=== PATIENT | male | born 1970 | race African-American/Black ===

== ENCOUNTER 2018-11-10 11:17 | Inpatient (IN) | payer OTHER ==
[2018-11-10 12:37] VITALS: BMI 31.8
--- NOTE | 2018-11-10 13:47 | HP ---
CIWA Score Nausea/Vomitin Muscle Tremors: 2 Anxiety: 2 Agitation: 2 Paroxysmal Sweats: 1-Minimal Palms Moist Orientation: 0-Oriented Tacttile Disturbances: 1-Very Mild Itch/Numbness Auditory Disturbances: 1-Very Mild Visual Disturbances: 0-None Headache: 2-Mild CIWA-Ar Total Score: 13 - Admission Criteria OASAS Guidelines: Admission for Medically Managed Detox: Requires at least one of the followin. CIWA greater than 12 2. Seizures within the past 24 hours 3. Delirium tremens within the past 24 hours 4. Hallucinations within the past 24 hours 5. Acute intervention needed for co occurring medical disorder 6. Acute intervention needed for co occurring psychiatric disorder 7. Severe withdrawal that cannot be handled at a lower level of care (continued vomiting, continued diarrhea, abnormal vital signs) requiring intravenous medication and/or fluids 8. Admission ROS S - HPI Chief Complaint: i need help to stop drinking alcohol Allergies/Adverse Reactions: Allergies Allergy/AdvReac Type Severity Reaction Status Date / Time No Known Allergies Allergy Verified 11/10/18 12:22 History of Present Illness: this 48 years old male with alcohol dependence,seeking detox,withdrawal symptom, also cocaine user, multiple admissions in detox,last [facility] in 05/09 completed history of hypertension,atrial fibrillation nicotine dependence 7 cigarette,would like to have nicotine gum hypercholesterolemia longest sobriety 18 months plan for out patient program,relocate patient is non compliance with medication for atrial fibrillation Exam Limitations: No Limitations - Ebola screening Have you traveled outside of the country in the last 21 days: No (N) Have you had contact with anyone from an Ebola affected area: No Do you have a fever: No - Review of Systems Constitutional: Loss of Appetite, Malaise, Night Sweats, Changes in sleep EENT: reports: Nose Congestion Respiratory: reports: No Symptoms reported Cardiac: reports: No Symptoms Reported, Other (hypertension,hypercholesterolemia ,atrial fibrillation non compliance with medication) GI: reports: Abd. Pain w/ defecation, Nausea : reports: No Symptoms Reported Musculoskeletal: reports: Back Pain, Muscle Pain Integumentary: reports: Dryness Neuro: reports: Headache, Tremors Endocrine: reports: No Symptoms Reported Hematology: reports: No Symptoms Reported Psychiatric: reports: No Sypmtoms Reported, Judgement Intact, Mood/Affect Appropiate, Orientated x3, other Other Systems: Reviewed and Negative Patient History - Patient Medical History Hx Anemia: No Hx Asthma: No Hx Chronic Obstructive Pulmonary Disease (COPD): No Hx Cancer: No Hx Cardiac Disorders: Yes (A - Fib ) Hx Congestive Heart Failure: No Hx Hypertension: Yes Hx Hypercholesterolemia: Yes Hx Pacemaker: No HX Cerebrovascular Accident: No Hx Seizures: No Hx Dementia: No Hx Diabetes: Yes (Pre-Diabetic Control with diet ) Hx Gastrointestinal Disorders: No Hx Liver Disease: No Hx Genitourinary Disorders: No Hx Sexually Transmitted Disorders: Yes (Gonorrhea ) Hx Renal Disease (ESRD): No Hx Thyroid Disease: No Hx Human Immunodeficiency Virus (HIV): No (last 07/10 negative) Hx Hepatitis C: No Hx Depression: Yes Hx Suicide Attempt: No Hx Bipolar Disorder: Yes (not on meds for 10 years,do not want to see psychiatrist) Hx Schizophrenia: No Other Medical History: no suicidal,no homicidal - Patient Surgical History Past Surgical History: No Hx Neurologic Surgery: No Hx Cataract Extraction: No Hx Cardiac Surgery: No Hx Lung Surgery: No Hx Breast Surgery: No Hx Breast Biopsy: No Hx Abdominal Surgery: No Hx Appendectomy: No Hx Cholecystectomy: No Hx Genitourinary Surgery: No Hx Section: No Hx Orthopedic Surgery: No Hx Hysterectomy: No Anesthesia Reaction: No - PPD History Previous Implant?: Yes Documented Results: Negative w/o proof Implanted On Prior R Admission?: Yes Date: 09/30/17 PPD to be Administered?: Yes - Smoking Cessation Smoking history: Current every day smoker Have you smoked in the past 12 months: Yes Aproximately how many cigarettes per day: 7 Hx Chewing Tobacco Use: No Initiated information on smoking cessation: Yes 'Breaking Loose' booklet given: 11/10/18 - Substance & Tx. History Hx Alcohol Use: Yes Hx Substance Use: Yes Substance Use Type: Alcohol, Cocaine Hx Substance Use Treatment: Yes ([facility] in 05/09) - Substances abused Alcohol Substance route: Oral Frequency: Daily Amount used: 6 CANS OF BEER 16 OZS, 3 PINTS OF VINCENZO Age of first use: 21 Date of last use: 11/10/18 Cocaine Substance route: Inhalation Frequency: 3-6 times per week Amount used: $400 Age of first use: 25 Date of last use: 11/09/18 Family Disease History - Family Disease History Family Disease History: Diabetes: Mother (alives, HTN), Heart Disease: Mother, Other: Father (, dementia ), Mother Admission Physical Exam [facility] - Vital Signs Vital Signs: Vital Signs - 24 hr 11/10/18 11/10/18 12:21 13:07 Temperature 97.5 F L 97.5 F L Pulse Rate 85 85 Respiratory 20 20 Rate Blood Pressure 143/83 143/83 - Physical General Appearance: Yes: Moderate Distress, Tremorous, Irritable, Sweating, Anxious HEENTM: Yes: Normal ENT Inspection, MARA, Pharynx Normal Respiratory: Yes: Lungs Clear, Normal Breath Sounds, No Respiratory Distress Neck: Yes: Within Normal Limits, Supple, Trachea in good position Breast: Yes: Within Normal Limits Cardiology: Yes: Within Normal Limits, Regular Rhythm, Regular Rate, S1, S2 Abdominal: Yes: Within Normal Limits, Normal Bowel Sounds, Non Tender, Flat, Soft Genitourinary: Yes: Within Normal Limits Back: Yes: Muscle Spasm Musculoskeletal: Yes: full range of Motion, Back pain, Muscle Pain Extremities: Yes: Tremors 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 NML intact, Alert, Motor Strength 5/5 Integumentary: Yes: Dry Lymphatic: Yes: Within Normal Limits - Diagnostic (1) Alcohol dependence with withdrawal Current Visit: No Status: Acute Qualifiers: Complication of substance-induced condition: uncomplicated Qualified Code(s ): F10.230 - Alcohol dependence with withdrawal, uncomplicated (2) Cocaine dependence Current Visit: No Status: Acute Qualifiers: Substance use status: uncomplicated Qualified Code(s): F14.20 - Cocaine dependence, uncomplicated (3) Hyperlipidemia Current Visit: No Status: Acute Qualifiers: Hyperlipidemia type: unspecified Qualified Code(s): E78.5 - Hyperlipidemia , unspecified (4) Hypertension Current Visit: No Status: Chronic Qualifiers: Hypertension type: essential hypertension Qualified Code(s): I10 - Essential (primary) hypertension (5) Prediabetes Current Visit: No Status: Chronic (6) History of atrial fibrillation Current Visit: No Status: Suspected (7) Nicotine dependence Current Visit: No Status: Acute Cleared for Admission [facility] - Detox or Rehab [facility] Level of Care: Medically Managed Detox Regimen/Protocol: Librium Breathalyzer - Breathalyzer Breathalyzer: 0 Urine Drug Screen - Test Device Lot number: [id number] Expiration date: 07/22/20 - Control Is test valid?: Yes - Results Drug screen NEGATIVE: No Urine drug screen results: [facility]-Cocaine Inpatient Rehab Admission - Rehab Decision to Admit Inpatient rehab admission?: No
[2018-11-10] MEDS ORDERED: MAGNESIUM CITRATE 300 ML BOTTLE PO PRN (13:57)
[2018-11-10] MEDS ORDERED: hydrOXYzine PAMOATE 25 MG CAPSULE (FP) PO PRN (13:57)
[2018-11-10] MEDS ORDERED: IBUPROFEN 400 MG TABLET (FP) PO PRN (13:57)
[2018-11-10] MEDS ORDERED: METHOCARBAMOL 500 MG TABLET PO PRN (13:57)
[2018-11-10] MEDS ORDERED: MAGNESIUM HYDROX 2400MG/30ML ORAL SUSPENSION 30 ML CUP PO PRN (13:57)
[2018-11-10] MEDS ORDERED: BISMUTH SUBSALICYLATE 262 MG/15 ML BTL PO PRN (13:57)
[2018-11-10] MEDS ORDERED: MAG HYDROX/AL HYDROX/SIMETH 30 ML UNIT-DOSE CUP PO PRN (13:57)
[2018-11-10] MEDS ORDERED: NICOTINE POLACRILEX 2 MG GUM BUC PRN (13:57)
[2018-11-10] MEDS ORDERED: ACETAMINOPHEN 325 MG TABLET (FP) PO PRN ×2 (13:57)
[2018-11-10] MEDS ORDERED: MENTHOL/PHENOL 1 EACH UD MM PRN (13:57)
[2018-11-10] MEDS ORDERED: chlordiazePOXIDE HCL 25 MG CAPSULE PO PRN (13:57)
--- NOTE | 2018-11-10 14:57 | PN ---
[facility] Progress Note Note: ekg atrial fibrillation 113/min,history of chronic atrial fibrillation,non compliance with medication
[2018-11-10] MEDS ORDERED: METOPROLOL TARTRATE 50 MG TABLET (FP) PO ONE (15:15)
[2018-11-10] MEDS ORDERED: ASPIRIN 81 MG CHEWABLE TABLETS PO ONE (15:15)
--- NOTE | 2018-11-10 15:21 | EKG ---
Test Reason : Blood Pressure : / mmHG Vent. Rate : 113 BPM Atrial Rate : 138 BPM P-R Int : 164 ms QRS Dur : 090 ms QT Int : 344 ms P-R-T Axes : 072 -34 055 degrees QTc Int : 471 ms SINUS TACHYCARDIA WITH BLOCKED PREMATURE ATRIAL COMPLEXES WITH FUSION COMPLEXES LEFT AXIS DEVIATION NONSPECIFIC T WAVE ABNORMALITY ABNORMAL ECG WHEN COMPARED WITH ECG OF 29-SEP-2017 09:32, FUSION COMPLEXES ARE NOW PRESENT QRS AXIS SHIFTED LEFT MINIMAL CRITERIA FOR INFERIOR INFARCT ARE NO LONGER PRESENT Confirmed by OSCAR QUIROS, EARLINE ([id number]) on 11/10/2018 3:20:45 PM Referred By: Confirmed By:EARLINE MOORE MD
--- NOTE | 2018-11-10 17:07 | CONSULT ---
[facility] Psychiatric Consult - Data Date of interview: 11/10/18 Admission source: [facility] Identifying data: Patient is a 48 year old male, father of three, domiciled, and is currently unemployed. This is one of multiple admissions for patient. Patient admitted to for cocaine dependence. Substance Abuse History: Smoking Cessation. Smoking history: Current every day smoker. Have you smoked in the past 12 months: Yes. Aproximately how many cigarettes per day: 7. Hx Chewing Tobacco Use: No. Initiated information on smoking cessation: Yes. 'Breaking Loose' booklet given: 11/10/18. - Substance & Tx. History. Hx Alcohol Use: Yes. Hx Substance Use: Yes. Substance Use Type : Alcohol, Cocaine. Hx Substance Use Treatment: Yes ([facility] Molina in 05/09). - Substances abused. Alcohol. Substance route: Oral. Frequency: Daily. Amount used: 6 CANS OF BEER 16 OZS, 3 PINTS OF VINCENZO. Age of first use: 21. Date of last use: 11/10/18. Cocaine. Substance route: Inhalation. Frequency: 3-6 times per week. Amount used: $400. Age of first use: 25. Date of last use: 11/09/18 Medical History: A-fib, Pre-diabetic, h/o Gonorrhea Psychiatric History: Patient reports h/o two psychiatric hospitalizations at [facility] ( over ten years ago) to address his depression. Patient with a history of noncompliance to psychiatric treatment. Reports last seeing an outpatient psychiatrist four months ago at [facility] but did not accept psychotropic medications. States he has taken celexa and zyprexa in the past. States he has not taken medications in ten years. At present he reports feeling depressed but is opposed to accepting medications. States he wants to continue detox and than attend rehab. Patient denies h/o suicide attempt. Physical/Sexual Abuse/Trauma History: denies. Mental Status Exam - Mental Status Exam Alert and Oriented to: Time, Place, Person Cognitive Function: Good Patient Appearance: Well Groomed Mood: Sad Affect: Mood Congruent Patient Behavior: Cooperative Speech Pattern: Appropriate Voice Loudness: Normal Thought Process: Goal Oriented Thought Disorder: Not Present Hallucinations: Denies Suicidal Ideation: Denies Homicidal Ideation: Denies Insight/Judgement: Poor Sleep: Fair Appetite: Fair Muscle strength/Tone: Normal Gait/Station: Normal Psychiatric Findings - Problem List ([place] 1, 2,3) (1) Substance induced mood disorder Current Visit: Yes Status: Acute (2) Alcohol dependence with withdrawal Current Visit: No Status: Acute Qualifiers: Complication of substance-induced condition: uncomplicated Qualified Code(s ): F10.230 - Alcohol dependence with withdrawal, uncomplicated (3) Cocaine dependence Current Visit: No Status: Acute Qualifiers: Substance use status: uncomplicated Qualified Code(s): F14.20 - Cocaine dependence, uncomplicated - Initial Treatment Plan Initial Treatment Plan: Psychoeducation provided. Detoxification in progress. Observation.
[2018-11-10 17:19] LABS: HEMATOCRIT 47.2 % (35.4-49); HEMOGLOBIN 15.3 GM/dL (11.7-16.9); MCH 29.2 pg (25.7-33.7); MCHC 32.5 g/dl (32.0-35.9); MEAN CELL VOLUME 89.9 fl (80-96); MEAN PLT VOLUME 9.4 fl (7.5-11.1); PLATELET COUNT 183 K/MM3 (134-434); RBC 5.25 M/mm3 (4.00-5.60); RDW 14.5 % (11.9-15.9); WHITE BLOOD COUNT 8.7 K/mm3 (4.0-10.0)
[2018-11-10] MEDS: chlordiazePOXIDE HCL 25 MG CAPSULE PO SCH ×2 (17:25→23:00)
[2018-11-10 17:27] LABS: ALBUMIN 4.5 g/dl (3.4-5.0); BILIRUBIN,TOTAL 1.1 mg/dL (0.2-1); CALCIUM 9.9 mg/dL (8.5-10.1); CREATININE 0.9 mg/dL (0.55-1.3); TOT PROT 7.8 g/dl (6.4-8.2)
[2018-11-10] MEDS: ATORVASTATIN CA 40 MG TABLET (FP) PO SCH (23:00)
[2018-11-10] MEDS: METOPROLOL TARTRATE 50 MG TABLET (FP) PO SCH (23:00)
[2018-11-10] MEDS: THIAMINE HCL 100 MG TABLET (FP) PO SCH (23:01)
[2018-11-10] MEDS: MELATONIN 5 MG TABLETS PO PRN (23:01)
[2018-11-11] MEDS: chlordiazePOXIDE HCL 25 MG CAPSULE PO SCH ×4 (06:49→22:54)
[2018-11-11] MEDS: PRENATAL VITAMINS W/ FOLIC ACID TABLET (FP) PO SCH (10:56)
[2018-11-11] MEDS: ASPIRIN 81 MG CHEWABLE TABLETS PO SCH (10:56)
[2018-11-11] MEDS: METOPROLOL TARTRATE 50 MG TABLET (FP) PO SCH ×2 (10:56→22:55)
--- NOTE | 2018-11-11 11:07 | PN ---
[facility] CIWA - CIWA Score Nausea/Vomitin Muscle Tremors: 2 Anxiety: 3 Agitation: 2 Paroxysmal Sweats: 1-Minimal Palms Moist Orientation: 0-Oriented Tacttile Disturbances: 1-Very Mild Itch/Numbness Auditory Disturbances: 1-Very Mild Visual Disturbances: 0-None Headache: 2-Mild CIWA-Ar Total Score: 14 [facility] Progress Note (SOAP) Subjective: alert,irritable,anxious,interrupted sleep,tremor Objective: 11/11/18 11:08 Vital Signs Temperature 97.3 F L 11/11/18 09:19 Pulse Rate 71 11/11/18 09:19 Respiratory Rate 18 11/11/18 09:19 Blood Pressure 118/93 11/11/18 09:19 O2 Sat by Pulse Oximetry (%) 11/11/18 11:15 repeat ekg nsr,snus arrthmia,invertrd t in v4 to v6,rate 71/min no chest pain,no sob,no dizziness Assessment: 11/11/18 11:17 withdrawal symptom Plan: continue detox,close monitoring,continue asa 81 mgs po daily,lopressor 50 mgs po bid and lipitor 40 mgs po hs, 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
--- NOTE | 2018-11-11 13:16 | EKG ---
Test Reason : Blood Pressure : / mmHG Vent. Rate : 071 BPM Atrial Rate : 071 BPM P-R Int : 160 ms QRS Dur : 084 ms QT Int : 412 ms P-R-T Axes : 066 -16 004 degrees QTc Int : 447 ms SINUS RHYTHM WITH MARKED SINUS ARRHYTHMIA T WAVE ABNORMALITY, CONSIDER LATERAL ISCHEMIA ABNORMAL ECG WHEN COMPARED WITH ECG OF 10-NOV-2018 14:39, FUSION COMPLEXES ARE NO LONGER PRESENT PREMATURE ATRIAL COMPLEXES ARE NO LONGER PRESENT VENT. RATE HAS DECREASED BY 42 BPM INVERTED T WAVES HAVE REPLACED NONSPECIFIC T WAVE ABNORMALITY IN LATERAL LEADS Confirmed by LUCIAN VILLA MD ([id number]) on 11/11/2018 1:15:52 PM Referred By: Confirmed By:LUCIAN VILLA MD
[2018-11-11] MEDS: THIAMINE HCL 100 MG TABLET (FP) PO SCH (22:54)
[2018-11-11] MEDS: ATORVASTATIN CA 40 MG TABLET (FP) PO SCH (22:54)
[2018-11-12] MEDS: chlordiazePOXIDE HCL 25 MG CAPSULE PO SCH ×2 (06:17→10:08)
[2018-11-12] MEDS: ASPIRIN 81 MG CHEWABLE TABLETS PO SCH (10:08)
[2018-11-12] MEDS: PRENATAL VITAMINS W/ FOLIC ACID TABLET (FP) PO SCH (10:08)
[2018-11-12] MEDS: METOPROLOL TARTRATE 50 MG TABLET (FP) PO SCH (10:08)
--- NOTE | 2018-11-12 14:05 | PN ---
[facility] CIWA - CIWA Score Nausea/Vomitin-No Nausea/No Vomiting Muscle Tremors: 3 Anxiety: 3 Agitation: 3 Paroxysmal Sweats: 2 Orientation: 0-Oriented Tacttile Disturbances: 0-None Auditory Disturbances: 0-None Visual Disturbances: 0-None Headache: 0-None Present CIWA-Ar Total Score: 11 S Progress Note (SOAP) Subjective: sweats shakes interrupted sleep agitation Objective: 11/12/18 14:03 Vital Signs Temperature 98.2 F 11/12/18 13:57 Pulse Rate 58 L 11/12/18 13:57 Respiratory Rate 18 11/12/18 13:57 Blood Pressure 142/95 11/12/18 13:57 O2 Sat by Pulse Oximetry (%) Laboratory Tests 11/10/18 11/10/18 11/10/18 14:10 14:15 14:15 WBC 8.7 RBC 5.25 Hgb 15.3 Hct 47.2 MCV 89.9 MCH 29.2 MCHC 32.5 RDW 14.5 Plt Count 183 MPV 9.4 Sodium 138 Potassium 4.0 Chloride 106 Carbon Dioxide 27 Anion Gap 6 L BUN 11 Creatinine 0.9 Est GFR (CKD-EPI)AfAm 116.65 Est GFR (CKD-EPI)NonAf 100.64 POC Glucometer 98 Random Glucose 98 Calcium 9.9 Total Bilirubin 1.1 H AST 11 L ALT 20 Alkaline Phosphatase 98 Total Protein 7.8 Albumin 4.5 RPR Titer HIV 1&2 Antibody Screen HIV P24 Antigen 11/10/18 11/10/18 11/10/18 14:15 14:15 16:27 WBC RBC Hgb Hct MCV MCH MCHC RDW Plt Count MPV Sodium Potassium Chloride Carbon Dioxide Anion Gap BUN Creatinine Est GFR (CKD-EPI)AfAm Est GFR (CKD-EPI)NonAf POC Glucometer 131 Random Glucose Calcium Total Bilirubin AST ALT Alkaline Phosphatase Total Protein Albumin RPR Titer Nonreactive HIV 1&2 Antibody Screen Negative HIV P24 Antigen Negative 11/11/18 11/11/18 11/12/18 06:48 16:51 06:23 WBC RBC Hgb Hct MCV MCH MCHC RDW Plt Count MPV Sodium Potassium Chloride Carbon Dioxide Anion Gap BUN Creatinine Est GFR (CKD-EPI)AfAm Est GFR (CKD-EPI)NonAf POC Glucometer 98 100 107 Random Glucose Calcium Total Bilirubin AST ALT Alkaline Phosphatase Total Protein Albumin RPR Titer HIV 1&2 Antibody Screen HIV P24 Antigen aaox3 ambulating no acute distress labs noted Assessment: 11/12/18 14:05 withdrawal sx Plan: continue detox increase fluids
[2018-11-12] MEDS ORDERED: chlordiazePOXIDE HCL 10 MG CAPSULE PO PRN (17:00)
[2018-11-12] MEDS: chlordiazePOXIDE HCL 10 MG CAPSULE PO SCH (18:53)
[2018-11-13] MEDS: THIAMINE HCL 100 MG TABLET (FP) PO SCH ×2 (00:26→22:07)
[2018-11-13] MEDS: ATORVASTATIN CA 40 MG TABLET (FP) PO SCH ×2 (00:26→22:06)
[2018-11-13] MEDS: METOPROLOL TARTRATE 50 MG TABLET (FP) PO SCH ×3 (00:26→22:07)
[2018-11-13] MEDS: chlordiazePOXIDE HCL 10 MG CAPSULE PO SCH ×4 (00:27→18:00)
--- NOTE | 2018-11-13 10:45 | PN ---
S CIWA - CIWA Score Nausea/Vomitin-No Nausea/No Vomiting Muscle Tremors: 2 Anxiety: 2 Agitation: 0-Normal Activity Paroxysmal Sweats: 3 Orientation: 0-Oriented Tacttile Disturbances: 0-None Auditory Disturbances: 0-None Visual Disturbances: 0-None Headache: 2-Mild CIWA-Ar Total Score: 9 [facility] Progress Note (SOAP) Subjective: c/o sweats, mild headache/tremors, and anxiety. Objective: 11/13/18 10:42 Vital Signs 11/13/18 11/13/18 03:30 08:21 Temperature 97.7 F Pulse Rate 65 Respiratory 18 18 Rate Blood Pressure 140/79 Lab Results WBC 8.7 K/mm3 (4.0-10.0) 11/10/18 14:15 RBC 5.25 M/mm3 (4.00-5.60) 11/10/18 14:15 Hgb 15.3 GM/dL (11.7-16.9) 11/10/18 14:15 Hct 47.2 % (35.4-49) 11/10/18 14:15 MCV 89.9 fl (80-96) 11/10/18 14:15 MCHC 32.5 g/dl (32.0-35.9) 11/10/18 14:15 RDW 14.5 % (11.9-15.9) 11/10/18 14:15 Plt Count 183 K/MM3 (134-434) 11/10/18 14:15 Sodium 138 mmol/L (136-145) 11/10/18 14:15 Potassium 4.0 mmol/L (3.5-5.1) 11/10/18 14:15 Chloride 106 mmol/L (98-107) 11/10/18 14:15 Carbon Dioxide 27 mmol/L (21-32) 11/10/18 14:15 Anion Gap 6 MMOL/L (8-16) L 11/10/18 14:15 BUN 11 mg/dL (7-18) 11/10/18 14:15 Creatinine 0.9 mg/dL (0.55-1.3) 11/10/18 14:15 Random Glucose 98 mg/dL (74-106) 11/10/18 14:15 Calcium 9.9 mg/dL (8.5-10.1) 11/10/18 14:15 Labs noted. Assessment: 11/13/18 10:42 AOX3, in no respiratory distress full rom withdrawal symptoms Plan: continue detox
[2018-11-13] MEDS: PRENATAL VITAMINS W/ FOLIC ACID TABLET (FP) PO SCH (10:57)
[2018-11-13] MEDS: ASPIRIN 81 MG CHEWABLE TABLETS PO SCH (10:57)
[2018-11-13] MEDS: MELATONIN 5 MG TABLETS PO PRN (22:07)
[2018-11-14] MEDS: chlordiazePOXIDE HCL 10 MG CAPSULE PO SCH ×2 (05:53→17:58)
[2018-11-14] MEDS: ASPIRIN 81 MG CHEWABLE TABLETS PO SCH (10:41)
[2018-11-14] MEDS: PRENATAL VITAMINS W/ FOLIC ACID TABLET (FP) PO SCH (10:41)
[2018-11-14] MEDS: METOPROLOL TARTRATE 50 MG TABLET (FP) PO SCH ×2 (11:31→22:16)
--- NOTE | 2018-11-14 13:55 | PN ---
S CIWA - CIWA Score Nausea/Vomitin-No Nausea/No Vomiting Muscle Tremors: None Anxiety: 2 Agitation: 2 Paroxysmal Sweats: 3 Orientation: 0-Oriented Tacttile Disturbances: 0-None Auditory Disturbances: 0-None Visual Disturbances: 0-None Headache: 0-None Present CIWA-Ar Total Score: 7 [facility] Progress Note (SOAP) Subjective: Lots of sweating Objective: 11/14/18 13:54 Last Vital Signs Temp Pulse Resp BP Pulse Ox 97.9 F 72 18 127/85 11/14/18 09:26 11/14/18 09:26 11/14/18 09:26 11/14/18 09:26 Laboratory Tests 11/10/18 11/10/18 11/10/18 14:10 14:15 14:15 WBC 8.7 RBC 5.25 Hgb 15.3 Hct 47.2 MCV 89.9 MCH 29.2 MCHC 32.5 RDW 14.5 Plt Count 183 MPV 9.4 Sodium 138 Potassium 4.0 Chloride 106 Carbon Dioxide 27 Anion Gap 6 L BUN 11 Creatinine 0.9 Est GFR (CKD-EPI)AfAm 116.65 Est GFR (CKD-EPI)NonAf 100.64 POC Glucometer 98 Random Glucose 98 Calcium 9.9 Total Bilirubin 1.1 H AST 11 L ALT 20 Alkaline Phosphatase 98 Total Protein 7.8 Albumin 4.5 RPR Titer HIV 1&2 Antibody Screen HIV P24 Antigen 11/10/18 11/10/18 11/10/18 14:15 14:15 16:27 WBC RBC Hgb Hct MCV MCH MCHC RDW Plt Count MPV Sodium Potassium Chloride Carbon Dioxide Anion Gap BUN Creatinine Est GFR (CKD-EPI)AfAm Est GFR (CKD-EPI)NonAf POC Glucometer 131 Random Glucose Calcium Total Bilirubin AST ALT Alkaline Phosphatase Total Protein Albumin RPR Titer Nonreactive HIV 1&2 Antibody Screen Negative HIV P24 Antigen Negative 11/11/18 11/11/18 11/12/18 06:48 16:51 06:23 WBC RBC Hgb Hct MCV MCH MCHC RDW Plt Count MPV Sodium Potassium Chloride Carbon Dioxide Anion Gap BUN Creatinine Est GFR (CKD-EPI)AfAm Est GFR (CKD-EPI)NonAf POC Glucometer 98 100 107 Random Glucose Calcium Total Bilirubin AST ALT Alkaline Phosphatase Total Protein Albumin RPR Titer HIV 1&2 Antibody Screen HIV P24 Antigen 11/12/18 11/13/18 11/14/18 16:59 16:38 05:52 WBC RBC Hgb Hct MCV MCH MCHC RDW Plt Count MPV Sodium Potassium Chloride Carbon Dioxide Anion Gap BUN Creatinine Est GFR (CKD-EPI)AfAm Est GFR (CKD-EPI)NonAf POC Glucometer 112 124 96 Random Glucose Calcium Total Bilirubin AST ALT Alkaline Phosphatase Total Protein Albumin RPR Titer HIV 1&2 Antibody Screen HIV P24 Antigen Labs reviewed Assessment: 11/14/18 13:55 Withdrawal symptoms Plan: Continue detox Encouraged PO water hydration D/C finger stick (no reason to continue finger stick)
[2018-11-14] MEDS: ATORVASTATIN CA 40 MG TABLET (FP) PO SCH (22:16)
[2018-11-14] MEDS: THIAMINE HCL 100 MG TABLET (FP) PO SCH (22:16)
[2018-11-15 07:30] VITALS: BP 134/68; PULSE 53; TEMP 98.2
--- NOTE | 2018-11-15 09:43 | DS ---
[facility] Detox Discharge Summary Admission Date: 11/10/18 Discharge Date: 11/15/18 - History Present History: Alcohol Dependence, Cocaine Dependence - Physical Exam Results Vital Signs: Vital Signs Temperature 98.2 F 11/15/18 07:29 Pulse Rate 53 L 11/15/18 07:29 Respiratory Rate 18 11/15/18 07:29 Blood Pressure 134/68 11/15/18 07:29 O2 Sat by Pulse Oximetry (%) - Treatment Hospital Course: Detox Protocol Followed, Detoxed Safely, Responded well, Discharged Condition Good, Rehab Referral Accepted - Medication Discharge Medications: Ambulatory Orders Aspirin [ASA -] 81 mg PO DAILY 09/28/17 Metoprolol Tartrate [Lopressor] 50 mg PO BID 09/29/17 Atorvastatin Calcium 40 mg PO HS 11/10/18 Aspirin [ASA -] 81 mg PO DAILY #14 tab.chew 11/15/18 Atorvastatin Ca [Lipitor] 40 mg PO HS #14 tablet 11/15/18 Metoprolol Tartrate [Lopressor -] 50 mg PO BID #28 tablet 11/15/18 - Diagnosis (1) Substance induced mood disorder Current Visit: Yes Status: Acute (2) Alcohol dependence with withdrawal Current Visit: Yes Status: Chronic Qualifiers: Complication of substance-induced condition: uncomplicated Qualified Code(s ): F10.230 - Alcohol dependence with withdrawal, uncomplicated (3) Anxious mood Current Visit: No Status: Acute (4) Cocaine dependence Current Visit: Yes Status: Chronic Qualifiers: Substance use status: uncomplicated Qualified Code(s): F14.20 - Cocaine dependence, uncomplicated (5) Hyperlipidemia Current Visit: No Status: Acute Qualifiers: Hyperlipidemia type: unspecified Qualified Code(s): E78.5 - Hyperlipidemia , unspecified (6) Nicotine dependence Current Visit: No Status: Acute (7) Hypertension Current Visit: No Status: Chronic Qualifiers: Hypertension type: essential hypertension Qualified Code(s): I10 - Essential (primary) hypertension (8) Prediabetes Current Visit: No Status: Chronic (9) History of atrial fibrillation Current Visit: No Status: Suspected - AMA Did Patient Leave Against Medical Advice: No (pt declined rehab)
== END 2018-11-15 09:47 | disposition home or self-care (01) | DRG 774 ==
LOC: YASAS 11:17 → Y6N 13:58
PROVIDERS: ADMIT Surgery; ATTEND Surgery
PROC: HZ2ZZZZ Detoxification Services for Substance Abuse Treatment (ICD-10-PCS; principal; 2018-11-10)
DX: F10.230 Alcohol dependence with withdrawal, uncomplicated (principal); F14.20 Cocaine dependence, uncomplicated; F17.213 Nicotine dependence, cigarettes, with withdrawal; F41.9 Anxiety disorder, unspecified; F19.24 Other psychoactive substance dependence with psychoactive substance-induced mood disorder; I10 Essential (primary) hypertension; E78.5 Hyperlipidemia, unspecified; R73.03 Prediabetes; Z86.79 Personal history of other diseases of the circulatory system
CPT/HCPCS: 36415; 80053; 82962; 85027; 86593; 87389; 93005; 93010

== ENCOUNTER 2019-07-18 13:57 | Inpatient (IN) | payer OTHER ==
[2019-07-18 16:43] VITALS: BMI 32.8
--- NOTE | 2019-07-18 17:21 | HP ---
CIWA Score Nausea/Vomitin (vomiting x 3) Muscle Tremors: 4-Moderate,w/Arms Extend Anxiety: 3 Agitation: 0-Normal Activity Paroxysmal Sweats: 2 Orientation: 0-Oriented Tacttile Disturbances: 0-None Auditory Disturbances: 0-None Visual Disturbances: 0-None Headache: 4-Moderately Severe CIWA-Ar Total Score: 16 - Admission Criteria OASAS Guidelines: Admission for Medically Managed Detox: Requires at least one of the followin. CIWA greater than 12 2. Seizures within the past 24 hours 3. Delirium tremens within the past 24 hours 4. Hallucinations within the past 24 hours 5. Acute intervention needed for co occurring medical disorder 6. Acute intervention needed for co occurring psychiatric disorder 7. Severe withdrawal that cannot be handled at a lower level of care (continued vomiting, continued diarrhea, abnormal vital signs) requiring intravenous medication and/or fluids 8. Admitting History and Physical - Smoking History Smoking history: Current every day smoker Have you smoked in the past 12 months: Yes Aproximately how many cigarettes per day: 7 - Alcohol/Substance Use Hx Alcohol Use: Yes Admission ROS [facility] Chief Complaint: Alcohol withdrawal symptoms Allergies/Adverse Reactions: Allergies Allergy/AdvReac Type Severity Reaction Status Date / Time No Known Allergies Allergy Verified 07/18/19 16:33 History of Present Illness: 48 years old male with a long history of alcohol dependence is seeking admission to detox. Patient has been in previous detox, last for the period - 11/15/[address] [facility]. He reports medical history of hypertension, AFIB, Pre-diabetes, hyperlipidemia, Gonorrhea and psych. history of depression, bipolar disorder and anxiety. He denies suicidal ideation, seizures and blackouts. His urine was positive for marijuana, cocaine and methamphetamine. Exam Limitations: No Limitations - Ebola screening Have you traveled outside of the country in the last 21 days: No Have you had contact with anyone from an Ebola affected area: No Do you have a fever: No - Review of Systems Constitutional: Chills, Night Sweats, Changes in sleep EENT: reports: No Symptoms Reported Respiratory: reports: No Symptoms reported Cardiac: reports: No Symptoms Reported GI: reports: Nausea, Poor Fluid Intake, Vomiting : reports: No Symptoms Reported Musculoskeletal: reports: Joint Pain Integumentary: reports: Dryness, Flushing Neuro: reports: Tremors Endocrine: reports: Increased Thirst Hematology: reports: No Symptoms Reported Psychiatric: reports: Mood/Affect Appropiate, Depressed Other Systems: Reviewed and Negative Patient History - Patient Medical History Hx Anemia: No Hx Asthma: No Hx Chronic Obstructive Pulmonary Disease (COPD): No Hx Cancer: No Hx Cardiac Disorders: Yes (A - Fib ) Hx Congestive Heart Failure: No Hx Hypertension: Yes Hx Hypercholesterolemia: Yes Hx Pacemaker: No HX Cerebrovascular Accident: No Hx Seizures: No Hx Dementia: No Hx Diabetes: Yes (Pre-Diabetic Control with diet ) Hx Gastrointestinal Disorders: No Hx Liver Disease: No Hx Genitourinary Disorders: No Hx Sexually Transmitted Disorders: Yes (Gonorrhea ) Hx Renal Disease (ESRD): No Hx Thyroid Disease: No Hx Human Immunodeficiency Virus (HIV): No (last 07/10 negative) Hx Hepatitis C: No Hx Depression: Yes Hx Suicide Attempt: No Hx Bipolar Disorder: Yes (not on meds for 10 years,do not want to see psychiatrist) Hx Schizophrenia: No - Patient Surgical History Past Surgical History: No Hx Neurologic Surgery: No Hx Cataract Extraction: No Hx Cardiac Surgery: No Hx Lung Surgery: No Hx Abdominal Surgery: No Hx Appendectomy: No Hx Cholecystectomy: No Hx Genitourinary Surgery: No Hx Orthopedic Surgery: No Hx Hysterectomy: No Anesthesia Reaction: No - PPD History Previous Implant?: Yes Documented Results: Negative w/proof Implanted On Prior [facility] Admission?: Yes Date: 11/12/18 Results: 0 mm PPD to be Administered?: No - Reproductive History Patient is a Female of Child Bearing Age (11 -55 yrs old): No (male) - Smoking Cessation Smoking history: Current every day smoker Have you smoked in the past 12 months: Yes Aproximately how many cigarettes per day: 7 Hx Chewing Tobacco Use: No Initiated information on smoking cessation: Yes 'Breaking Loose' booklet given: 07/18/19 - Substance & Tx. History Hx Alcohol Use: Yes Hx Substance Use: Yes Substance Use Type: Alcohol, Cocaine, Marijuana Hx Substance Use Treatment: Yes ([facility]) - Substances abused Alcohol Substance route: Oral Frequency: Daily Amount used: 4 CANS- 12oz EACH, 1/2 PINT TEQUILA, VINCENZO 1/2 PINT Age of first use: 21 Date of last use: 07/18/19 Crystal meth Substance route: Smoking Frequency: 3-6 times per week Amount used: $500 Age of first use: 48 Date of last use: 07/16/19 Cocaine Substance route: Inhalation Frequency: Daily Amount used: 120$/WEEK Age of first use: 21 Date of last use: 07/16/19 Admission Physical Exam [facility] - Vital Signs Vital Signs: Vital Signs - 24 hr 07/18/19 16:32 Temperature 97.6 F Pulse Rate 100 H Respiratory 16 Rate Blood Pressure 129/89 - Physical General Appearance: Yes: Moderate Distress, Tremorous, Sweating, Anxious HEENTM: Yes: Within Normal Limits Respiratory: Yes: Lungs Clear, Normal Breath Sounds, No Respiratory Distress Neck: Yes: Within Normal Limits Breast: Yes: Breast Exam Deferred Cardiology: Yes: Tachycardia Abdominal: Yes: Within Normal Limits Genitourinary: Yes: Within Normal Limits Back: Yes: Normal Inspection Musculoskeletal: Yes: Within Normal Limits Extremities: Yes: Normal Inspection Neurological: Yes: Within Normal Limits, Alert, Normal Mood/Affect Integumentary: Yes: Warm Lymphatic: Yes: Within Normal Limits - Diagnostic (1) Gonorrhea Current Visit: Yes Status: Chronic (2) Depression Current Visit: Yes Status: Chronic Qualifiers: Depression Type: unspecified Qualified Code(s): F32.9 - Major depressive disorder, single episode, unspecified (3) Bipolar disorder Current Visit: Yes Status: Chronic Qualifiers: Current episode severity: unspecified (4) Anxious mood Current Visit: Yes Status: Chronic (5) Hyperlipidemia Current Visit: Yes Status: Chronic Qualifiers: Hyperlipidemia type: unspecified Qualified Code(s): E78.5 - Hyperlipidemia , unspecified (6) Nicotine dependence Current Visit: Yes Status: Chronic Qualifiers: Nicotine product type: cigarettes Substance use status: uncomplicated Qualified Code(s): F17.210 - Nicotine dependence, cigarettes, uncomplicated (7) Alcohol dependence with withdrawal Current Visit: Yes Status: Acute Qualifiers: Complication of substance-induced condition: with unspecified complication Qualified Code(s): F10.239 - Alcohol dependence with withdrawal, unspecified (8) Cocaine dependence Current Visit: Yes Status: Chronic Qualifiers: Substance use status: uncomplicated Qualified Code(s): F14.20 - Cocaine dependence, uncomplicated (9) Hypertension Current Visit: Yes Status: Chronic Qualifiers: Hypertension type: unspecified Qualified Code(s): I10 - Essential (primary ) hypertension (10) Prediabetes Current Visit: Yes Status: Chronic (11) History of atrial fibrillation Current Visit: Yes Status: Chronic Cleared for Admission S - Detox or Rehab [facility] Level of Care: Medically Managed Detox Regimen/Protocol: Librium Breathalyzer - Breathalyzer Breathalyzer: 0.059 Urine Drug Screen - Test Device Lot number: [id number] Expiration date: 07/22/20 - Control Is test valid?: Yes - Results Drug screen NEGATIVE: No Urine drug screen results: [facility]-Cocaine Inpatient Rehab Admission - Rehab Decision to Admit Inpatient rehab admission?: No
[2019-07-18] MEDS ORDERED: METHOCARBAMOL 500 MG TABLET PO PRN (17:46)
[2019-07-18] MEDS ORDERED: MAGNESIUM HYDROX 2400MG/30ML ORAL SUSPENSION 30 ML CUP PO PRN (17:46)
[2019-07-18] MEDS ORDERED: NICOTINE POLACRILEX 2 MG GUM BUC PRN (17:46)
[2019-07-18] MEDS ORDERED: BISMUTH SUBSALICYLATE 524 MG/30 ML UD PO PRN (17:46)
[2019-07-18] MEDS ORDERED: MELATONIN 5 MG TABLETS PO PRN (17:46)
[2019-07-18] MEDS ORDERED: ACETAMINOPHEN 325 MG TABLET (FP) PO PRN ×2 (17:46)
[2019-07-18] MEDS ORDERED: IBUPROFEN 400 MG TABLET (FP) PO PRN (17:46)
[2019-07-18] MEDS ORDERED: MENTHOL/PHENOL 1 EACH UD MM PRN (17:46)
[2019-07-18] MEDS ORDERED: MAGNESIUM CITRATE 300 ML BOTTLE PO PRN (17:46)
[2019-07-18] MEDS ORDERED: MAG HYDROX/AL HYDROX/SIMETH 30 ML UNIT-DOSE CUP PO PRN (17:46)
[2019-07-18] MEDS ORDERED: hydrOXYzine PAMOATE 25 MG CAPSULE (FP) PO PRN (17:46)
[2019-07-18] MEDS ORDERED: chlordiazePOXIDE HCL 25 MG CAPSULE PO PRN (17:49)
[2019-07-18] MEDS: chlordiazePOXIDE HCL 25 MG CAPSULE PO SCH ×2 (19:29→22:10)
[2019-07-18] MEDS: THIAMINE HCL 100 MG TABLET (FP) PO SCH (22:10)
[2019-07-18] MEDS: METOPROLOL TARTRATE 50 MG TABLET (FP) PO SCH (22:10)
[2019-07-18] MEDS: ATORVASTATIN CA 40 MG TABLET (FP) PO SCH (22:11)
[2019-07-19] MEDS: chlordiazePOXIDE HCL 25 MG CAPSULE PO SCH ×4 (07:07→22:07)
--- NOTE | 2019-07-19 09:17 | PN ---
S CIWA - CIWA Score Nausea/Vomitin-Mild Nausea/No Vomiting Muscle Tremors: 3 Anxiety: 4-Mod. Anxious/Guarded Agitation: 2 Paroxysmal Sweats: 2 Orientation: 0-Oriented Tacttile Disturbances: 0-None Auditory Disturbances: 0-None Visual Disturbances: 1-Very Mild Sensitivity Headache: 0-None Present CIWA-Ar Total Score: 13 BHS Progress Note (SOAP) Subjective: 48 years old male admitted on 07/18/19 for alcohol withdrawal sx management treating with librium detox regiment feeling ok today has borderline diabetes encourage no concentrated sugar patient prefers regular diet at this time change bgm from bid to acbk Objective: 07/19/19 09:19 Vital Signs Temperature 97.2 F L 07/19/19 09:09 Pulse Rate 64 07/19/19 09:09 Respiratory Rate 20 07/19/19 09:09 Blood Pressure 110/70 07/19/19 09:09 O2 Sat by Pulse Oximetry (%) Laboratory Last Values POC Glucometer 115 UNITS (80-120) 07/19/19 07:07 07/19/19 09:19 lab pending Assessment: 07/19/19 09:20 alcohol withdrawal Plan: librium regimen
[2019-07-19] MEDS ORDERED: ASPIRIN 81 MG CHEWABLE TABLETS PO SCH (10:00)
[2019-07-19] MEDS ORDERED: PRENATAL VITAMINS W/ FOLIC ACID TABLET (FP) PO SCH (10:00)
[2019-07-19] MEDS ORDERED: NICOTINE 14 MG/24 HOURS TOPICAL PATCH TD SCH (10:00)
[2019-07-19] MEDS: METOPROLOL TARTRATE 50 MG TABLET (FP) PO SCH ×2 (10:13→23:04)
[2019-07-19 10:52] LABS: HEMATOCRIT 43.7 % (35.4-49); HEMOGLOBIN 14.5 GM/dL (11.7-16.9); MCHC 33.1 g/dl (32.0-35.9); MEAN CELL VOLUME 90.5 fl (80-96); PLATELET COUNT 223 K/MM3 (134-434); RBC 4.83 M/mm3 (4.00-5.60); RDW 13.4 % (11.9-15.9); WHITE BLOOD COUNT 5.2 K/mm3 (4.0-10.0)
[2019-07-19 11:04] LABS: ALBUMIN 3.3 g/dl (3.4-5.0); BILIRUBIN,TOTAL 0.5 mg/dL (0.2-1); BLOOD UREA NITROGEN 13.8 mg/dL (7-18); CALCIUM 8.3 mg/dL (8.5-10.1); CREATININE 0.9 mg/dL (0.55-1.3); POTASSIUM 4.1 mmol/L (3.5-5.1); TOT PROT 5.7 g/dl (6.4-8.2)
--- NOTE | 2019-07-19 14:04 | CONSULT ---
[facility] Psychiatric Consult - Data Date of interview: 07/19/19 Admission source: [facility] Identifying data: Patient declines psychiatric evaluation. Psychiatrist + medical student made THREE visits at bedside. Nursing staff is made aware.
--- NOTE | 2019-07-19 15:13 | EKG ---
Test Reason : Blood Pressure : / mmHG Vent. Rate : 108 BPM Atrial Rate : 108 BPM P-R Int : 152 ms QRS Dur : 086 ms QT Int : 364 ms P-R-T Axes : 071 -42 051 degrees QTc Int : 487 ms SINUS TACHYCARDIA WITH PREMATURE ATRIAL COMPLEXES LEFT AXIS DEVIATION NONSPECIFIC T WAVE ABNORMALITY ABNORMAL ECG Confirmed by MD Joana, Pardeep ([id number]) on 07/19/2019 3:13:24 PM Referred By: Confirmed By:Pardeep Bernard MD
[2019-07-19 21:15] VITALS: TEMP 98.1
[2019-07-19] MEDS: ATORVASTATIN CA 40 MG TABLET (FP) PO SCH (22:07)
[2019-07-19] MEDS: THIAMINE HCL 100 MG TABLET (FP) PO SCH (22:07)
[2019-07-19 22:53] VITALS: BP 140/80; PULSE 106
--- NOTE | 2019-07-19 23:46 | PN ---
[facility] Progress Note Note: Patient is complaining of chest pain rated at 10/10 Vital Signs Temperature 98.1 F 07/19/19 21:14 Pulse Rate 106 H 07/19/19 22:52 Respiratory Rate 20 07/19/19 22:52 Blood Pressure 140/80 07/19/19 22:52 O2 Sat by Pulse Oximetry (%) Action:EKG - Atrial fibrillation with rapid ventricular response with premature ventricular or aberrantly conducted complexes. Nonspecific T wave abnormality -Transfer patient to ER for cardiac evaluation. Endorsed to Dr. Cortés
[2019-07-20] MEDS ORDERED: chlordiazePOXIDE HCL 25 MG CAPSULE PO SCH (05:00)
--- NOTE | 2019-07-20 11:23 | EKG ---
Test Reason : Blood Pressure : / mmHG Vent. Rate : 104 BPM Atrial Rate : 170 BPM P-R Int : 000 ms QRS Dur : 086 ms QT Int : 364 ms P-R-T Axes : 000 -33 022 degrees QTc Int : 478 ms ATRIAL FIBRILLATION WITH RAPID VENTRICULAR RESPONSE LEFT AXIS DEVIATION NONSPECIFIC T WAVE ABNORMALITY ABNORMAL ECG WHEN COMPARED WITH ECG OF 18-JUL-2019 18:07, ATRIAL FIBRILLATION HAS REPLACED SINUS RHYTHM Confirmed by Aj Mckinney MD ([id number]) on 07/20/2019 11:23:11 AM Referred By: Confirmed By:Aj Mckinney MD
[2019-07-21] MEDS ORDERED: chlordiazePOXIDE HCL 10 MG CAPSULE PO PRN
[2019-07-21] MEDS ORDERED: chlordiazePOXIDE HCL 10 MG CAPSULE PO SCH (05:00)
[2019-07-22] MEDS ORDERED: chlordiazePOXIDE HCL 10 MG CAPSULE PO SCH (05:00)
[2019-07-23] MEDS ORDERED: chlordiazePOXIDE HCL 10 MG CAPSULE PO ONE (05:00)
== END 2019-07-20 00:15 | disposition short-term general hospital (02) | DRG 774 ==
LOC: YASAS 13:57 → Y3N 18:15
PROVIDERS: ADMIT Allergy & Immunology; ATTEND Allergy & Immunology
PROC: HZ2ZZZZ Detoxification Services for Substance Abuse Treatment (ICD-10-PCS; principal; 2019-07-18)
DX: F10.230 Alcohol dependence with withdrawal, uncomplicated (principal); F14.20 Cocaine dependence, uncomplicated; F17.210 Nicotine dependence, cigarettes, uncomplicated; F41.9 Anxiety disorder, unspecified; I10 Essential (primary) hypertension; E78.00 Pure hypercholesterolemia, unspecified; R07.89 Other chest pain; I48.91 Unspecified atrial fibrillation; R93.1 Abnormal findings on diagnostic imaging of heart and coronary circulation; R73.03 Prediabetes; R00.0 Tachycardia, unspecified; Z87.438 Personal history of other diseases of male genital organs
CPT/HCPCS: 36415; 80053; 82962; 85027; 86593; 87389; 93005; 93010

== ENCOUNTER 2019-07-20 00:30 | Observation (INO) | payer OTHER ==
--- NOTE | 2019-07-20 00:42 | PDOC ---
Attending Attestation - Resident Resident Name: Pino Carlisle - ED Attending Attestation I have performed the following: I have examined & evaluated the patient, The case was reviewed & discussed with the resident, I agree w/resident's findings & plan - HPI HPI: 07/20/19 04:51 see resident hpi - Physicial Exam PE: 07/20/19 04:51 see resident exam - Medical Decision Making 07/20/19 04:52 48-year-old male sent from alcohol detox for chest pain Patient has atrial fibrillation on arrival with known history of the same Plan for admission to medical service for observation
--- NOTE | 2019-07-20 00:46 | PDOC ---
History of Present Illness - General Stated Complaint: CHEST PAIN Time Seen by Provider: 07/20/19 00:41 History Source: Patient Exam Limitations: No Limitations - History of Present Illness Initial Comments: 07/20/19 04:08 48 yo M with a hx of afib (not on AC), HTN, and HLD presents to the emergency department from [facility] with chest pain with sudden onset at approximately 1: 00 am. Per the patient, he states it started on the left chest wall with radiation to the left arm and left sided neck. The patient describes the pain as constant, 8/10 severity without relieving or aggravating factors. Currently the patient severity is 7/10. Endorses SOB on examination. Denies nausea. Allergies: NKDA Past History - Past Medical History Allergies/Adverse Reactions: Allergies Allergy/AdvReac Type Severity Reaction Status Date / Time No Known Allergies Allergy Verified 07/20/19 11:43 Home Medications: Ambulatory Orders Atorvastatin Calcium 40 mg PO HS 11/10/18 Aspirin [ASA -] 81 mg PO DAILY #14 tab.chew 11/15/18 Metoprolol Tartrate [Lopressor -] 50 mg PO BID #28 tablet 11/15/18 Anemia: No Asthma: No Cancer: No Cardiac Disorders: Yes (A - Fib ) CVA: No COPD: No CHF: No Dementia: No Diabetes: Yes (Pre-Diabetic Control with diet ) GI Disorders: No Disorders: No HTN: Yes Hypercholesterolemia: Yes Kidney Stones: No Liver Disease: No Seizures: No Thyroid Disease: No - Surgical History Abdominal Surgery: No Appendectomy: No Cardiac Surgery: No Cholecystectomy: No Lung Surgery: No Neurologic Surgery: No Orthopedic Surgery: No - Reproductive History Testicular Surgery: No - Psycho Social/Smoking Cessation Hx Smoking History: Current every day smoker Have you smoked in the past 12 months: Yes Number of Cigarettes Smoked Daily: 7 'Breaking Loose' booklet given: 07/18/19 Hx Alcohol Use: Yes Drug/Substance Use Hx: Yes Substance Use Type: Alcohol, Cocaine, Marijuana Hx Substance Use Treatment: Yes ([facility]) Review of Systems - Review of Systems Able to Perform ROS?: Yes Is the patient limited Malay proficient: No Constitutional: No: Chills, Diaphoresis, Fever, Weakness HEENTM: No: Eye Pain, Ear Pain, Nose Pain, Throat Pain, Mouth Pain Respiratory: Yes: Cough, Shortness of Breath. No: Hemoptysis Cardiac (ROS): Yes: Chest Pain. No: Lightheadedness, Palpitations, Syncope, Chest Tightness ABD/GI: No: Constipated, Diarrhea, Nausea, Poor Appetite, Poor Fluid Intake, Rectal Bleeding, Vomiting, Tarry Stools : No: Burning, Dysuria, Hematuria Musculoskeletal: No: Back Pain, Joint Pain, Neck Pain Integumentary: No: Bruising, Erythema, Rash Neurological: No: Headache, Numbness, Tingling Endocrine: No: Unexplained Weight Loss Hematologic/Lymphatic: No: Anemia *Physical Exam - Physical Exam General Appearance: Yes: Nourished, Appropriately Dressed. No: Apparent Distress, Intoxicated HEENT: positive: EOMI, MARA, Normal Voice, Symmetrical, Pharynx Normal, Hearing Grossly Normal. negative: Pale Conjunctivae, Scleral Icterus (R), Scleral Icterus (L), Muffled/Hoarse voice, Pharyngeal Erythema, Tonsillar Exudate, Tonsillar Erythema, Nasal Congestion, Rhinorrhea, Excessive drooling Neck: positive: Trachea midline, Supple. negative: Tender, Lymphadenopathy (R) , Lymphadenopathy (L), Tender lateral, Tender midline Respiratory/Chest: positive: Decreased Breath Sounds, Wheezing. negative: Chest Tender, Respiratory Distress, Accessory Muscle Use Cardiovascular: positive: Regular Rhythm, Regular Rate, S1, S2. negative: Systolic Murmur Gastrointestinal/Abdominal: positive: Normal Bowel Sounds, Flat, Soft. negative : Tender Lymphatic: negative: Adenopathy Musculoskeletal: positive: Normal Inspection. negative: CVA Tenderness, Vertebral Tenderness Extremity: positive: Normal Capillary Refill, Normal Inspection, Normal Range of Motion. negative: Tender, Swelling, Calf Tenderness Integumentary: positive: Normal Color, Dry, Warm. negative: Swelling, Ecchymosis Neurologic: positive: type copy examiner II-XII NML intact, Fully Oriented, Alert, Normal Mood/ Affect, Normal Response, Motor Strength 5/5 Heart Score/ECG Review - History History: Moderately suspicious - Electrocardiogram EKG: Non specific repolarization disturbance - Age Age: 45-65 - Risk Factors Risk Factors Heart Score: Yes Hx Hypercholesterolemia, Yes Hx Hypertension, Yes Smoking History Based on the list above the patient has:: >/=3 risk factors or Hx atherosclerotic disease - Troponin Troponin: </= normal limit - Score Heart Score - Total: 5 ED Treatment Course - LABORATORY CBC & Chemistry Diagram: 07/21/19 06:06 07/21/19 06:06 Medical Decision Making - Medical Decision Making 48 yo M with a hx of afib (not on AC) presents to the emergency department from [facility] with chest pain with sudden onset at approximately 1:00 am. Initial vitals: Initial Vital Signs Temp Pulse Resp BP Pulse Ox 98 F 96 H 20 117/76 99 07/20/19 00:45 07/20/19 00:45 07/20/19 00:45 07/20/19 00:45 07/20/19 00:45 Work up: patient presents to the emergency department for [facility] where he is undergoing detoxifcation from cocaine, crystal meth, and alcohol abuse. Per the patient, he has used these substances for "years" with last use 2 days ago. The patient has had chest pain in the past and was worked up for his afib and declined to be on anti-coagulation. In the ED, he was noted to have afib with RVR at a rate of 104 on EKG with q waves present in V5-V6 with no ST segment changes with a QTc of 478ms. Will work up ACS; likely needs tele admission due to risk factors and presenting symptoms Laboratory Tests 07/20/19 07/20/19 07/20/19 01:40 01:40 01:40 WBC 5.8 RBC 4.79 Hgb 14.4 Hct 43.0 MCV 89.9 MCH 30.1 MCHC 33.5 RDW 13.5 Plt Count 219 MPV 8.8 Absolute Neuts (auto) 1.9 Neutrophils % 33.7 L Lymphocytes % 50.5 H Monocytes % 9.0 Eosinophils % 5.9 H Basophils % 0.9 Nucleated RBC % 0 PT with INR 11.60 INR 0.98 Sodium 142 Potassium 4.0 Chloride 110 H Carbon Dioxide 28 Anion Gap 5 L BUN 14.0 Creatinine 0.8 Est GFR (CKD-EPI)AfAm 122.43 Est GFR (CKD-EPI)NonAf 105.63 Random Glucose 119 H Calcium 8.8 Total Bilirubin 0.3 AST 17 ALT 25 Alkaline Phosphatase 76 Creatine Kinase 171 Creatine Kinase Index 1.4 CK-MB (CK-2) 2.5 Troponin I < 0.02 Total Protein 5.6 L Albumin 3.0 L troponin was negative Patient's CXR negative for acute pathologies Patient will require tele admission; was accepted by hospitalist service for tele due to continued chest pain in the setting of a moderate HEART score with concerning features on history and EKG changes. Dispo Admit Discharge - Discharge Information Problems reviewed: Yes Clinical Impression/Diagnosis: Chest pain - Follow up/Referral - Patient Discharge Instructions - Post Discharge Activity
[2019-07-20] MEDS ORDERED: ACETAMINOPHEN 1000 MG/100 ML VIAL (NON FORMULARY) IVPB ONE (00:48)
[2019-07-20] MEDS ORDERED: ACETAMINOPHEN INJECTION 100 ML IVPB ONE (01:17)
[2019-07-20 02:10] LABS: BASO % 0.9 % (0-2.0); EOS % 5.9 % (0-4.5); HEMOGLOBIN 14.4 GM/dL (11.7-16.9); LYMPH % 50.5 % (8-40); MCH 30.1 pg (25.7-33.7); MCHC 33.5 g/dl (32.0-35.9); MEAN CELL VOLUME 89.9 fl (80-96); MEAN PLT VOLUME 8.8 fl (7.5-11.1); NEUT % 33.7 % (42.8-82.8); PLATELET COUNT 219 K/MM3 (134-434); RBC 4.79 M/mm3 (4.00-5.60); RDW 13.5 % (11.9-15.9); WHITE BLOOD COUNT 5.8 K/mm3 (4.0-10.0)
[2019-07-20] MEDS ORDERED: ALBUTEROL SO4 2.5/IPRATROPIUM 0.5 INH SOL 3 ML VIAL.NEB. NEB ONE ×2 (02:11→02:56)
[2019-07-20 02:17] LABS: INR 0.98 (0.83-1.09); PROTHROMBIN TIME (PATIENT) 11.6 SEC (9.7-13.0)
[2019-07-20 02:34] LABS: ALK PHOS 76 U/L (45-117); ANION GAP 5 MMOL/L (8-16); BILIRUBIN,TOTAL 0.3 mg/dL (0.2-1); CALCIUM 8.8 mg/dL (8.5-10.1); CHLORIDE 110 mmol/L (98-107); CO2 28 mmol/L (21-32); CREATININE 0.8 mg/dL (0.55-1.3); GLUCOSE,RANDOM 119 mg/dL (74-106); SGOT/AST 17 U/L (15-37); SGPT/ALT 25 U/L (13-61); SODIUM 142 mmol/L (136-145); TOT PROT 5.6 g/dl (6.4-8.2)
--- NOTE | 2019-07-20 04:39 | PN ---
Teaching Attending Note Name of Resident: Tank Kirkpatrick ATTENDING PHYSICIAN STATEMENT I saw and evaluated the patient. I reviewed the resident's note and discussed the case with the resident. I agree with the resident's findings and plan as documented. SUBJECTIVE: 48-year-old male with atrial fibrillation not on anticoagulation sent from [facility] to hospital complaining of chest pain which started suddenly at 1 AM. Pain started at the left chest wall and radiated to left arm and left neck. Pain was constant, 8 out of 10 associated with some shortness of breath. Patient admits to smoking cocaine and methamphetamine about 1 day prior. OBJECTIVE: Last Vital Signs Temp Pulse Resp BP Pulse Ox 98 F 96 H 20 117/76 99 07/20/19 00:45 07/20/19 00:45 07/20/19 00:45 07/20/19 00:45 07/20/19 00:45 GENERAL: Well developed, well nourished. Awake and alert. No acute distress. HEENT: Normocephalic, atraumatic. PERRLA, EOMI. No conjunctival pallor. Sclera are non- icteric. Moist mucous membranes. NECK: Supple. Full ROM. No JVD. Carotid pulses 2+ and symmetric, without bruits. No thyromegaly. No lymphadenopathy. CARDIOVASCULAR: Irregularly irregular rate and rhythm No murmurs, rubs, or gallops. Distal pulses are 2+ and symmetric. PULMONARY: No evidence of respiratory distress. Lungs clear to auscultation bilaterally. No wheezing, rales or rhonchi. ABDOMINAL: Soft. Non-tender. Non-distended. No rebound or guarding. No organomegaly. Normoactive bowel sounds. MUSCULOSKELETAL Normal range of motion at all joints. No bony deformities or tenderness. No CVA tenderness. EXTREMITIES: No cyanosis. No clubbing. No edema. No calf tenderness. SKIN: Warm and dry. Normal capillary refill. No rashes. No jaundice. PSYCHIATRIC: Cooperative. Good eye contact. Appropriate mood and affect. Abnormal Lab Results 07/20/19 07/20/19 01:40 01:40 Neutrophils % 33.7 L Lymphocytes % 50.5 H Eosinophils % 5.9 H Chloride 110 H Anion Gap 5 L Random Glucose 119 H Total Protein 5.6 L Albumin 3.0 L EKG was positive for atrial fibrillation, rate was controlled acute ischemic changes noted Chest x-ray reviewed ASSESSMENT AND PLAN: #Chest painSuspect is induced by cocaine and methamphetamine use. #Atrial fibrillationRate controlled Telemetry observation Trend troponins Nitroglycerin as needed sublingual if chest pain Echo Cardiology evaluation Cardiac stress test Atorvastatin 40 mg p.o. aspirin 81 mg p.o. daily, Avoid beta-blockers in setting of acute cocaine and methamphetamine use #Polysubstance abuse Librium protocol Thiamine and folate and multivitamin IV fluids EtOH level, urine toxicology Counseled on cocaine and methamphetamine cessation #Hypoalbuminemia #DVT prophylaxisheparin subcutaneously
[2019-07-20] MEDS ORDERED: chlordiazePOXIDE HCL 10 MG CAPSULE PO PRN (04:54)
--- NOTE | 2019-07-20 05:05 | HP ---
CHIEF COMPLAINT: chest pain PCP: none HISTORY OF PRESENT ILLNESS: Argentina Hitchcock is a 48 year old male with a past medical history of afib (not on AC), HTN, HLD who presents from [facility] where he was for alcohol detox. He stated that he started to feel palpitations and left sided chest pain that radiated to the left side of his neck and down his left arm. He endorsed some shortness of breath and diaphoresis associated with the episode. Does not remember what the inciting events of the chest pain were but denies any strenuous activity at the time. With this episode denied fever, nausea, vomiting , headaches, dizziness, lightheadedness, syncope, abdominal pain, numbness, tingling, focal weakness. He states he has had similar episodes like this in the past which were resolved with sublingual nitro and that episodes like this in the past occurred when he was exerting himself and sometimes when he was at rest. Noted that his last use of cocaine, alcohol, and crystal meth were 2 days prior to this chest pain episode. Stated that he did not want to take medications for his atrial fibrillation because he looked up the side effects of the medications and was not comfortable with them. ER course was notable for: (1) HR 90s-110s and irregular (2) negative troponin (3) EKG--> afib, rate 104, q waves in V5, V6, no ST segment changes, QTc 478 Recent Travel: denies PAST MEDICAL HISTORY: as above PAST SURGICAL HISTORY: denies Social History: Smokin cigarettes per day, current smoker Alcohol: 4 cans (12oz), 1/2 pint of marce, 1/2 pint of tequila daily Drugs: 3-6x week crystal meth, daily cocaine week Allergies No Known Allergies Allergy (Verified 07/20/19 01:01) HOME MEDICATIONS: Home Medications Medication Instructions Recorded Atorvastatin Calcium 40 mg PO HS 11/10/18 Aspirin [ASA -] 81 mg PO DAILY #14 tab.chew 11/15/18 Metoprolol Tartrate [Lopressor -] 50 mg PO BID #28 tablet 11/15/18 REVIEW OF SYSTEMS CONSTITUTIONAL: diaphoresis Absent: fever, chills, generalized weakness, malaise, loss of appetite, weight change HEENT: Absent: rhinorrhea, nasal congestion, throat pain, throat swelling, difficulty swallowing, visual changes CARDIOVASCULAR: chest pain, palpitations Absent: syncope, irregular heart rate, lightheadedness, peripheral edema RESPIRATORY: shortness of breath, dyspnea with exertion Absent: cough, orthopnea, wheezing, stridor, hemoptysis GASTROINTESTINAL: Absent: abdominal pain, abdominal distension, nausea, vomiting, diarrhea, constipation GENITOURINARY: Absent: dysuria, frequency, urgency, hesitancy, hematuria, flank pain, MUSCULOSKELETAL: Absent: myalgia, arthralgia, joint swelling, back pain, neck pain SKIN: Absent: rash, itching, pallor HEMATOLOGIC/IMMUNOLOGIC: Absent: easy bleeding, easy bruising, lymphadenopathy, frequent infections ENDOCRINE: Absent: unexplained weight gain, unexplained weight loss, heat intolerance, cold intolerance NEUROLOGIC: Absent: headache, focal weakness or paresthesias, dizziness, unsteady gait, seizure, mental status changes, bladder or bowel incontinence PSYCHIATRIC: Absent: anxiety, depression, suicidal or homicidal ideation, hallucinations. PHYSICAL EXAMINATION Vital Signs - 24 hr 07/20/19 00:45 Temperature 98 F Pulse Rate 96 H Respiratory 20 Rate Blood Pressure 117/76 O2 Sat by Pulse 99 Oximetry (%) GENERAL: Awake, alert, and fully oriented, in no acute distress. HEAD: Normal with no signs of trauma. EYES: Pupils equal, round and reactive to light, extraocular movements intact, sclera anicteric, conjunctiva clear. EARS, NOSE, THROAT: Oropharynx clear without exudates. Moist mucous membranes. NECK: Normal range of motion, supple without lymphadenopathy, JVD. LUNGS: Breath sounds equal, clear to auscultation bilaterally. No wheezes, and no crackles. No accessory muscle use. HEART: Normal rate and irregular rhythm, normal S1 and S2 without murmur, rub. ABDOMEN: Soft, nontender, not distended, normoactive bowel sounds, no guarding, no rebound, no masses. MUSCULOSKELETAL: Normal range of motion at all joints. No bony deformities or tenderness. UPPER EXTREMITIES: 2+ pulses, warm, well-perfused. No cyanosis. No clubbing. No peripheral edema. LOWER EXTREMITIES: 2+ pulses, warm, well-perfused. No calf tenderness. No peripheral edema. NEUROLOGICAL: Cranial nerves II-XII intact. 5/5 muscle strength bilaterally upper and lower extremities. PSYCHIATRIC: Cooperative. Good eye contact. Appropriate mood and affect. SKIN: Warm, dry, normal turgor, no rashes or lesions noted, normal capillary refill. Laboratory Results - last 24 hr 07/20/19 07/20/19 07/20/19 01:40 01:40 01:40 WBC 5.8 RBC 4.79 Hgb 14.4 Hct 43.0 MCV 89.9 MCH 30.1 MCHC 33.5 RDW 13.5 Plt Count 219 MPV 8.8 Absolute Neuts (auto) 1.9 Neutrophils % 33.7 L Lymphocytes % 50.5 H Monocytes % 9.0 Eosinophils % 5.9 H Basophils % 0.9 Nucleated RBC % 0 PT with INR 11.60 INR 0.98 Sodium 142 Potassium 4.0 Chloride 110 H Carbon Dioxide 28 Anion Gap 5 L BUN 14.0 Creatinine 0.8 Est GFR (CKD-EPI)AfAm 122.43 Est GFR (CKD-EPI)NonAf 105.63 Random Glucose 119 H Calcium 8.8 Total Bilirubin 0.3 AST 17 ALT 25 Alkaline Phosphatase 76 Creatine Kinase 171 Creatine Kinase Index 1.4 CK-MB (CK-2) 2.5 Troponin I < 0.02 Total Protein 5.6 L Albumin 3.0 L ASSESSMENT/PLAN: Argentina Hitchcock is a 48 year old male with a past medical history of afib (not on AC), HTN, HLD under observation for rule out of ACS. Chest Pain - HEART SCORE 5 (highly suspicious, age 45-64, >3 risk factors) - EKG as above, change from 2 days prior that now patient in afib, previously in sinus tach with PAC - troponin negative, continue to trend - repeat EKG - echo ordered - cardiology consult for possible stress test - continue home aspirin - lipid profile, A1c Afib - currently [facility] 1 - A1c ordered - to discuss options with patient as he previously refused medications for afib Alcohol Withdrawal - CIWA currently 3 - continue Librium protocol as was started at [facility] - banana bag - thiamine, folate, MVI HTN - currently well contolled - caution with restarting metoprolol as patient history of cocaine abuse HLD - continue home atorvastatin DVT PPx - heparin 5000 units subq tid FEN - 1x banana bag, encourage oral hydration - continue to monitor electrolytes and replete as necessary - NPO pending any cardiology interventions Dispo - observation admission for rule out ACS Family Medical History Family History: Denies Visit type - Emergency Visit Emergency Visit: Yes Care time: The patient presented to the Emergency Department on the above date and was hospitalized for further evaluation of their emergent condition. - New Patient This patient is new to me today: Yes Date on this admission: 07/20/19 - Critical Care Critical Care patient: No
[2019-07-20] MEDS ORDERED: NITROGLYCERIN SUBLINGUAL 1/200 0.3 MG BTL SL PRN (05:49)
[2019-07-20] MEDS ORDERED: chlordiazePOXIDE HCL 25 MG CAPSULE ONE ×2 (05:54→14:32)
[2019-07-20] MEDS ORDERED: HEPARIN NA (PORCINE) 5,000 UNITS/ML 1ML VIAL ONE (05:54)
[2019-07-20] MEDS: HEPARIN NA (PORCINE) 5,000 UNITS/ML 1ML VIAL SQ SCH ×3 (05:59→21:11)
[2019-07-20] MEDS: chlordiazePOXIDE HCL 25 MG CAPSULE PO SCH ×3 (05:59→21:11)
[2019-07-20] MEDS ORDERED: FOLIC ACID INJECTION - 1 MG, THIAMINE HCL 100 MG, MULTIVIT INJECTION ADULT 10 ML in SOD... IVPB ONE (06:30)
[2019-07-20 06:32] LABS: BASO % 0.7 % (0-2.0); EOS % 5.9 % (0-4.5); LYMPH % 54.6 % (8-40); MCH 29.8 pg (25.7-33.7); MCHC 33.3 g/dl (32.0-35.9); MEAN CELL VOLUME 89.5 fl (80-96); MEAN PLT VOLUME 8.3 fl (7.5-11.1); MONO % 9.2 % (3.8-10.2); NEUT % 29.6 % (42.8-82.8); PLATELET COUNT 230 K/MM3 (134-434); RBC 4.69 M/mm3 (4.00-5.60); RDW 13.6 % (11.9-15.9)
[2019-07-20 07:20] LABS: ANION GAP 5 MMOL/L (8-16); BLOOD UREA NITROGEN 11.2 mg/dL (7-18); CALCIUM 8.7 mg/dL (8.5-10.1); CHLORIDE 109 mmol/L (98-107); CO2 26 mmol/L (21-32); CREATININE 0.8 mg/dL (0.55-1.3); GLUCOSE,RANDOM 103 mg/dL (74-106); MAGNESIUM 1.9 mg/dL (1.8-2.4); POTASSIUM 3.8 mmol/L (3.5-5.1); SODIUM 140 mmol/L (136-145)
[2019-07-20 07:45] LABS: CHOLESTEROL 113 mg/dL (50-200); HDL CHOLESTEROL 43 mg/dL (40-60); LDL CHOLESTEROL (ONLY SJRH) 56 mg/dL (5-100); TRIGLYCERIDES 81 mg/dL (0-150)
[2019-07-20] MEDS: THIAMINE HCL 100 MG TABLET (FP) PO SCH (11:00)
[2019-07-20] MEDS: FOLIC ACID 1 MG TABLET (FP) PO SCH (11:00)
[2019-07-20] MEDS: MULTIVITAMINS (DAILY MVI) TABLET (FP) PO SCH (11:00)
[2019-07-20] MEDS: ASPIRIN 81 MG CHEWABLE TABLETS PO SCH (11:00)
--- NOTE | 2019-07-20 13:46 | ECHO ---
Name: ROXANNE NICHOLS Exam:Adult Echocardiogram Study Date: 07/20/2019 09:29 AM Age: 48 yrs Reason For Study: A-Fib w/ chest pain Height: 67 in Weight: 210 lb BSA: 2.1 m2 MMode/2D Measurements & Calculations IVSd: 1.2 cm Ao root diam: 3.5 cm LVIDd: 5.4 cm LA dimension: 4.1 cm LVIDs: 3.8 cm ACS: 2.3 cm LVPWd: 1.2 cm EDV(Teich): 141.8 ml LVOT diam: 2.5 cm ESV(Teich): 63.8 ml LVLd ap4: 8.1 cm SV(MOD-sp4): 70.8 ml EDV(MOD-sp4): 166.0 ml LVLs ap4: 6.9 cm ESV(MOD-sp4): 95.2 ml LAV (MOD-bp): 93.5 ml TAPSE: 1.8 cm RV S Arian: 11.7 cm/sec Doppler Measurements & Calculations MV E max arian: 71.8 cm/sec Ao V2 max: 104.5 cm/sec MV dec time: 0.17 sec Ao max P.4 mmHg Ao V2 mean: 63.4 cm/sec Ao mean P.0 mmHg Ao V2 VTI: 19.9 cm OG(I,D): 3.9 cm2 OG(V,D): 3.9 cm2 LV V1 max P.8 mmHg SV(LVOT): 77.1 ml LV V1 mean P.5 mmHg LV V1 max: 83.9 cm/sec LV V1 mean: 57.1 cm/sec LV V1 VTI: 15.9 cm TR max arian: 203.2 cm/sec PA V2 max: 95.0 cm/sec TR max P.9 mmHg PA max P.6 mmHg PA acc time: 0.12 sec PI end-d arian: 81.4 cm/sec Med Peak E' Arian: 10.3 cm/sec Med E/e': 6.9 Lat Peak E' Arian: 11.4 cm/sec Lat E/e': 6.3 PA pr(Accel): 25.1 mmHg Procedure A two-dimensional transthoracic echocardiogram with color flow and Doppler was performed. Left Ventricle The left ventricle is normal in size. Left ventricular systolic function is mildly reduced. Ejection Fraction = 45-50%. Regional wall motion abnormalities cannot be excluded due to limited visualization. Right Ventricle The right ventricle is grossly normal size. Atria The left atrium is mildly dilated. The right atrium is mildly dilated. Mitral Valve There is mild mitral valve thickening. There is no mitral valve stenosis. There is trace to mild mitr al regurgitation. Tricuspid Valve There is mild tricuspid valve thickening. There is no tricuspid stenosis. There is mild to moderate t ricuspid regurgitation. Right ventricular systolic pressure is normal. Aortic Valve The aortic valve is not well visualized. No hemodynamically significant valvular aortic stenosis. No aortic regurgitation is present. Pulmonic Valve The pulmonic valve is not well visualized. Great Vessels The aortic root is normal size. Pericardium/Pleura There is no pericardial effusion. Interpretation Summary There is mild to moderate tricuspid regurgitation. Right ventricular systolic pressure is normal. The left atrium is mildly dilated. The right atrium is mildly dilated. The left ventricle is normal in size. Left ventricular systolic function is mildly reduced. Ejection Fraction = 45-50%. Regional wall motion abnormalities cannot be excluded due to limited visualization. There is trace to mild mitral regurgitation. MD Star Alfaro 07/20/2019 01:46 PM
--- NOTE | 2019-07-20 13:52 | PN ---
Physical Exam: SUBJECTIVE: Patient seen and examined at bedside this AM. AF on tele but returned to sinus ryhthym. Minimal chest pain and left neck and shoulder pain. CIWA 2. OBJECTIVE: Vital Signs Period Temp Pulse Resp BP Sys/Mcdowell Pulse Ox Last 24 Hr 97.9 F-98 F 81-96 16-20 113-118/76-99 97-100 GENERAL: The patient is awake, alert, and fully oriented, in no acute distress. NECK: supple. LUNGS: Breath sounds equal, clear to auscultation bilaterally, no wheezes, no crackles, no accessory muscle use. HEART: Regular rate and rhythm, S1, S2 without murmur, rub or gallop. ABDOMEN: Soft, nontender, nondistender EXTREMITIES: 2+ pulses, warm, well-perfused, no edema. NEUROLOGICAL: Cranial nerves II through XII grossly intact. Normal speech, gait not observed. PSYCH: mild agitation. SKIN: Warm, dry, no rashes or lesions noted Laboratory Results - last 24 hr 07/20/19 07/20/19 07/20/19 01:40 01:40 01:40 WBC 5.8 RBC 4.79 Hgb 14.4 Hct 43.0 MCV 89.9 MCH 30.1 MCHC 33.5 RDW 13.5 Plt Count 219 MPV 8.8 Absolute Neuts (auto) 1.9 Neutrophils % 33.7 L Lymphocytes % 50.5 H Monocytes % 9.0 Eosinophils % 5.9 H Basophils % 0.9 Nucleated RBC % 0 PT with INR 11.60 INR 0.98 Sodium 142 Potassium 4.0 Chloride 110 H Carbon Dioxide 28 Anion Gap 5 L BUN 14.0 Creatinine 0.8 Est GFR (CKD-EPI)AfAm 122.43 Est GFR (CKD-EPI)NonAf 105.63 Random Glucose 119 H Hemoglobin A1c % Calcium 8.8 Magnesium Total Bilirubin 0.3 AST 17 ALT 25 Alkaline Phosphatase 76 Creatine Kinase 171 Creatine Kinase Index 1.4 CK-MB (CK-2) 2.5 Troponin I < 0.02 Total Protein 5.6 L Albumin 3.0 L Triglycerides Cholesterol Total LDL Cholesterol HDL Cholesterol TSH Free T4 Alcohol, Quantitative 07/20/19 07/20/19 07/20/19 06:15 06:15 06:15 WBC 5.0 RBC 4.69 Hgb 14.0 Hct 42.0 MCV 89.5 MCH 29.8 MCHC 33.3 RDW 13.6 Plt Count 230 MPV 8.3 Absolute Neuts (auto) 1.5 Neutrophils % 29.6 L Lymphocytes % 54.6 H Monocytes % 9.2 Eosinophils % 5.9 H Basophils % 0.7 Nucleated RBC % 0 PT with INR INR Sodium 140 Potassium 3.8 Chloride 109 H Carbon Dioxide 26 Anion Gap 5 L BUN 11.2 Creatinine 0.8 Est GFR (CKD-EPI)AfAm 122.43 Est GFR (CKD-EPI)NonAf 105.63 Random Glucose 103 Hemoglobin A1c % 5.7 Calcium 8.7 Magnesium 1.9 Total Bilirubin AST ALT Alkaline Phosphatase Creatine Kinase Creatine Kinase Index CK-MB (CK-2) Troponin I < 0.02 Total Protein Albumin Triglycerides 81 Cholesterol 113 Total LDL Cholesterol 56 HDL Cholesterol 43 TSH 0.21 L Free T4 Alcohol, Quantitative 07/20/19 07/20/19 08:00 10:00 WBC RBC Hgb Hct MCV MCH MCHC RDW Plt Count MPV Absolute Neuts (auto) Neutrophils % Lymphocytes % Monocytes % Eosinophils % Basophils % Nucleated RBC % PT with INR INR Sodium Potassium Chloride Carbon Dioxide Anion Gap BUN Creatinine Est GFR (CKD-EPI)AfAm Est GFR (CKD-EPI)NonAf Random Glucose Hemoglobin A1c % Calcium Magnesium Total Bilirubin AST ALT Alkaline Phosphatase Creatine Kinase 138 Creatine Kinase Index CK-MB (CK-2) Troponin I < 0.02 Total Protein Albumin Triglycerides Cholesterol Total LDL Cholesterol HDL Cholesterol TSH Free T4 1.16 Alcohol, Quantitative < 3 Active Medications Generic Name Dose Route Start Last Admin Trade Name Freq PRN Reason Stop Dose Admin Aspirin 81 mg 07/20/19 10:00 07/20/19 11:00 Asa - PO 81 mg DAILY YOCASTA Administration Atorvastatin Calcium 40 mg 07/20/19 22:00 Lipitor - PO HS YOCASTA Chlordiazepoxide HCl 10 mg 07/20/19 04:54 Librium - PO 07/21/19 23:59 Q8H PRN Signs/symptoms of Withdrawal Chlordiazepoxide HCl 25 mg 07/20/19 05:00 07/20/19 05:59 Librium - PO 07/20/19 21:01 25 mg Q8H YOCASTA Administration Chlordiazepoxide HCl 15 mg 07/21/19 05:00 Librium - PO 07/21/19 21:01 Q8H YOCASTA Chlordiazepoxide HCl 10 mg 07/22/19 05:00 Librium - PO 07/22/19 21:01 Q8H YOCASTA Chlordiazepoxide HCl 10 mg 07/23/19 05:00 Librium - PO 07/23/19 05:01 ONCE ONE Folic Acid 1 mg 07/20/19 10:00 07/20/19 11:00 Folic Acid - PO 1 mg DAILY YOCASTA Administration Heparin Sodium (Porcine) 5,000 unit 07/20/19 06:00 07/20/19 05:59 Heparin - SQ 5,000 unit TID YOCASTA Administration Folic Acid 1 mg/ Thiamine HCl 1,000 mls @ 125 mls/hr 07/20/19 06:30 07/20/19 06:55 100 mg/ Multivitamins/Minerals IVPB 07/20/19 14:29 125 mls/hr 10 ml/ Sodium Chloride ONCE ONE Administration Multivitamins/Minerals/Vitamin C 1 tab 07/20/19 10:00 07/20/19 11:00 Tab-A-Vit - PO 1 tab DAILY YOCASTA Administration Nitroglycerin 0.3 mg 07/20/19 05:49 Nitrostat - SL Q5M PRN FOR CHEST PAIN Thiamine HCl 100 mg 07/20/19 10:00 07/20/19 11:00 Vitamin B1 - PO 100 mg DAILY YOCASTA Administration ASSESSMENT/PLAN: Argentina Hitchcock is a 48 year old male with a past medical history of afib (not on AC), HTN, HLD under observation for rule out of ACS. #Chest Pain likely 2/2 cocaine intoxication vs Hyperthyroidism - HEART SCORE 5 - TSH- 0.21, but T4 normal - sinus rythym in AM, negative trops X 3. - echo showing LA/RA dilation mildly and EF- 45-50% with trace->mild MR. - cardiology consult (Dr. Bernard) does not think pt needs stress test given recently normal at [facility]. - start aspirin and carvedilol 3.125 - lipid profile normal - UA tox pending, blood ETOH level <3. #Afib - currently [facility] 1 - A1c 5.7 - Cardio can discuss with pts on recommended meds for Af. - Pt counseled on drug and alcohol cessation especially Cocaine/ETOH as possible cause of his AF. #Alcohol Withdrawal - CIWA currently 2 - continue Librium protocol as was started at [facility] - banana bag - thiamine, folate, MVI - will go back to rehab once medically stable per Dr. Martínez, will confirm bed for placement tm. #HTN - currently well controlled - will start him on carvedilol #HLD - start him on atorvastatin DVT PPx - heparin 5000 units subq tid FEN - 1x banana bag, encourage oral hydration - continue to monitor electrolytes and replete as necessary - NPO until after procedure Dispo -Dr Martínez will take pt back for rehab/detox once medically cleared - pt placed on asa, metop 50bid, and lipitor 40 HS in 03/10, but for only 2 wk supply. Pt has not been taking them since. Visit type - Emergency Visit Emergency Visit: Yes ED Registration Date: 07/20/19 Care time: The patient presented to the Emergency Department on the above date and was hospitalized for further evaluation of their emergent condition. - New Patient This patient is new to me today: Yes Date on this admission: 07/20/19 - Critical Care Critical Care patient: No - Discharge Referral Referred to [facility] No ATTENDING PHYSICIAN STATEMENT I saw and evaluated the patient. I reviewed the resident's note and discussed the case with the resident. I agree with the resident's findings and plan as documented. SUBJECTIVE: OBJECTIVE: ASSESSMENT AND PLAN:
[2019-07-20 14:03] LABS: METHADONE, UR NEGATIVE ng/ml (CUTOFF=300); OPIATES, URI NEGATIVE ng/ml (CUTOFF=300); PHENCYCLIDINE,URINE NEGATIVE ng/ml (CUTOFF=25); URINE AMPHETAMINES NEGATIVE ng/ml (CUTOFF=500); URINE BARBITURATES NEGATIVE ng/ml (CUTOFF=200)
[2019-07-20 14:12] LABS: COCAINE, UR POSITIVE ng/ml (CUTOFF=300); URINE BENZODIAZEPINES POSITIVE ng/ml (CUTOFF=200)
--- NOTE | 2019-07-20 14:36 | CON.CARD ---
Consult Consult Specialty:: Cardiology Referred by:: Olu Reason for Consultation:: Afib - History of Present Illness Chief Complaint: Chest tightness History of Present Illness: 48 year old male with a pmhx of paroxysmal afib (refused AC in past) sent from [facility] with report of chest pain. Patient said that for the most part he felt ok but staff at [facility] kept waking him up to check vitals and than told him he had to go to the ER. Does report that had some mild chest tightness which radiated to his neck and this is feeling he usually gets when he goes into afib. Reports stress testing last year at [facility]. Active etoh, cocaine, and crystal meth use Currently asymptomatic - History Source History Provided By: Patient, Medical Record - Past Medical History Cardio/Vascular: Yes: AFIB - Alcohol/Substance Use Hx Alcohol Use: Yes - Smoking History Smoking history: Current every day smoker Have you smoked in the past 12 months: Yes Aproximately how many cigarettes per day: 7 Home Medications - Allergies Allergies/Adverse Reactions: Allergies Allergy/AdvReac Type Severity Reaction Status Date / Time No Known Allergies Allergy Verified 07/20/19 11:43 - Home Medications Home Medications: Ambulatory Orders Atorvastatin Calcium 40 mg PO HS 11/10/18 Aspirin [ASA -] 81 mg PO DAILY #14 tab.chew 11/15/18 Metoprolol Tartrate [Lopressor -] 50 mg PO BID #28 tablet 11/15/18 Vital Signs: Vital Signs Temperature 98.1 F 07/20/19 14:13 Pulse Rate 75 07/20/19 14:13 Respiratory Rate 20 07/20/19 14:13 Blood Pressure 115/84 07/20/19 14:13 O2 Sat by Pulse Oximetry (%) 98 07/20/19 14:13 Constitutional: Yes: No Distress Neck: Yes: Supple Respiratory: Yes: CTA Bilaterally Gastrointestinal: Yes: Soft Cardiovascular: Yes: Pulse Irregular JVD: No Carotid Bruit: No Heart Sounds: Yes: S1, S2 Murmur: No: Systolic Murmur Edema: No - Other Data Labs, Other Data: CBC, BMP 07/20/19 06:15 07/20/19 06:15 INR, PTT INR 0.98 (0.83-1.09) 07/20/19 01:40 Troponin, BNP 07/20/19 07/20/19 07/20/19 01:40 06:15 10:00 Troponin I < 0.02 < 0.02 < 0.02 Troponin, BNP 07/20/19 07/20/19 07/20/19 01:40 06:15 10:00 Troponin I < 0.02 < 0.02 < 0.02 Imaging - Results Chest X-ray: Report Reviewed EKG: Image Reviewed Assessment/Plan 48 year old male with a pmhx of paroxysmal afib (refused AC in past) sent from [facility] with report of chest pain. Patient said that for the most part he felt ok but staff at [facility] kept waking him up to check vitals and than told him he had to go to the ER. Does report that had some mild chest tightness which radiated to his neck and this is feeling he usually gets when he goes into afib. Reports stress testing last year at [facility]. Active etoh, cocaine, and crystal meth use 1) Chest pain in setting of afib and etoh withdrawal with recent cocaine/ crystal meth use -Detox as per primary team on librium -Primary team should contact [facility] to get cardiac testing results -Admit to telemetry. Currently asymptomatic. Initial ekg with sinus with pac's but than subsequent ekg afib with VR 105bpm with nonspecific T wave abnormalities. EKG's in 2018 with lateral TWI. Would monitor on telemetry overnight to see if afib persists and if so if rate controlled or not. If rates not controlled than would use carvedilol 3.125mg instead of metoprolol. Aspirin 81mg daily. Discussed NOAC's with patient and he refuses and says he has refused in the past. His CHADS score is 1-2. He has mildly reduced LVEF on echo but question whether history of htn. He says he has htn but bp's normal on no meds here. Either way patient refuses NOAC.
--- NOTE | 2019-07-20 15:06 | TRE ---
Protocol Name : RAÚL Max Work Load (METS*10) : 70 Time In Exercise Phase : 00:05:04 Max. Systolic BP : 130 mmHg Max Diastolic BP : 80 mmHg Max Heart Rate : 142 BPM Max Predicted Heart Rate : 172 BPM Attending Physician : DR. MOORE Reason For Termination : UNABLE TO REACH TARGET HEART RATE DUE TO DIZZINES Reason for Test : CP Stress Protocol : RAÚL Rest HR : 102 BPM PeakEx METs : 7.0 METS Recovery ECG Response (OLD) : Diagnosis : Baseline ekg sjhowed Atrial Fibrilation nonspecific repolarization abnormalities . At peak exercise frequent VPC's, no diagnostic ST T wave changes. Test terminated early at 82 % PHR due to dizziness. Non-diagnostic EST. Confirmed by OSCAR QUIROS, EARLINE ([id number]) on 07/20/2019 3:05:54 PM
--- NOTE | 2019-07-20 15:40 | CONSULT ---
Consult Detox [facility] Reason for Current Admission/Consult: [place] [facility] [place] had acute A Fib with chest pain and transferred to [facility] Referred by:: Tank Kirkpatrick - History History of Present Illness: Argentina Hitchcock is a 48 year old male with a past medical history of afib (not on AC), HTN, HLD who presents [place] [facility] [place] was for alcohol detox. He stated that he started to feel palpitations and left sided chest pain that radiated to the left side of his neck and down his left arm. He endorsed some shortness of breath and diaphoresis associated with the episode. Does not remember what the inciting events of the chest pain were but denies any strenuous activity at the time. With this episode denied fever, nausea, vomiting , headaches, dizziness, lightheadedness, syncope, abdominal pain, numbness, tingling, focal weakness. He states he has had similar episodes like this in the past which were resolved with sublingual nitro and that episodes like this in the past occurred when he was exerting himself and sometimes when he was at rest. Noted that his last use of cocaine, alcohol, and crystal meth were 2 days prior to this chest pain episode. Stated that he did not want to take medications for his atrial fibrillation because he looked up the side effects of the medications and was not comfortable with them. ER course was notable for: (1) HR 90s-110s and irregular (2) negative troponin (3) EKG--> afib, rate 104, q waves in V5, V6, no ST segment changes, QTc 478 [place] [facility] [place] history of substances used were as follows: Alcohol Substance route: Oral Frequency: Daily Amount used: 4 CANS- 12oz EACH, 1/2 PINT TEQUILA, VINCENZO 1/2 PINT Age of first use: 21 Date of last use: 07/18/19 Crystal meth Substance route: Smoking Frequency: 3-6 times per week Amount used: $500 Age of first use: 48 Date of last use: 07/16/19 Cocaine Substance route: Inhalation Frequency: Daily Amount used: 120$/WEEK Age of first use: 21 Date of last use: 07/16/19 He was supposed go have started alcohol detox protocol at [facility] when cardiac episode occurred so it was never started at [facility]. - History Source History Provided By: Medical Record, Transfer Record Limitations to Obtaining History: No Limitations - Alcohol/Substance Use Hx Alcohol Use: Yes (3 timesa weekbeer/vincenzo/janice) - Past Medical History Cardio/Vascular: Yes: AFIB CIWA Score - CIWA Score Nausea/Vomitin Muscle Tremors: 2 Anxiety: 2 (this was the CIWA score prior to transfer.) Agitation: 1-Slight > Activity Paroxysmal Sweats: 7-Drenching Sweats Orientation: 0-Oriented Tacttile Disturbances: 0-None Auditory Disturbances: 0-None Visual Disturbances: 1-Very Mild Sensitivity Headache: 1-Very Mild CIWA-Ar Total Score: 19 Assessment Plan - Plan Plan: 1. Alcohol Dependence with withdrawals: Continue librium detox protocol while hospitalized. Noted orders that were started. He will do well upon completion of detox and can be transferred back when medically stabilized. 2. Afib: Ruled out NE by enzymes. Once his rhythm is reverted to regular from A Fib, he can be transferred back [place] [facility] to either finish detox or go to rehab. Dr. Martínez - Medication Detox Regimen/Protocol: Librium
[2019-07-20 15:45] VITALS: BMI 33.0
--- NOTE | 2019-07-20 17:31 | PN ---
Teaching Attending Note Name of Resident: Vinod Quintero ATTENDING PHYSICIAN STATEMENT I saw and evaluated the patient. I reviewed the resident's note and discussed the case with the resident. I agree with the resident's findings and plan as documented. SUBJECTIVE: Ongoing L sided neck pain. Otherwise feels well. No fever/chills/ cough/sputum. No palpitations/SOB. OBJECTIVE: Afebrile, Hemodynamically Stable. Last Vital Signs Temp Pulse Resp BP Pulse Ox 98.2 F 108 H 20 151/97 98 07/20/19 15:21 07/20/19 15:21 07/20/19 15:21 07/20/19 15:21 07/20/19 15:34 HEENT - Atraumatic, Normocephalic. Heart - S1, S2, irregular Lungs - clear to auscultation Abdomen - Soft, non-tender. Bowel Sounds normal. Extremities - no edema, no calf tenderness. Laboratory Results - last 24 hr 07/20/19 07/20/19 07/20/19 01:40 01:40 01:40 WBC 5.8 RBC 4.79 Hgb 14.4 Hct 43.0 MCV 89.9 MCH 30.1 MCHC 33.5 RDW 13.5 Plt Count 219 MPV 8.8 Absolute Neuts (auto) 1.9 Neutrophils % 33.7 L Lymphocytes % 50.5 H Monocytes % 9.0 Eosinophils % 5.9 H Basophils % 0.9 Nucleated RBC % 0 PT with INR 11.60 INR 0.98 Sodium 142 Potassium 4.0 Chloride 110 H Carbon Dioxide 28 Anion Gap 5 L BUN 14.0 Creatinine 0.8 Est GFR (CKD-EPI)AfAm 122.43 Est GFR (CKD-EPI)NonAf 105.63 Random Glucose 119 H Hemoglobin A1c % Calcium 8.8 Magnesium Total Bilirubin 0.3 AST 17 ALT 25 Alkaline Phosphatase 76 Creatine Kinase 171 Creatine Kinase Index 1.4 CK-MB (CK-2) 2.5 Troponin I < 0.02 Total Protein 5.6 L Albumin 3.0 L Triglycerides Cholesterol Total LDL Cholesterol HDL Cholesterol TSH Free T4 Opiates Screen Methadone Screen Barbiturate Screen Phencyclidine Screen Ur Amphetamines Screen MDMA (Ecstasy) Screen Benzodiazepines Screen Cocaine Screen U Marijuana (THC) Screen Alcohol, Quantitative 07/20/19 07/20/19 07/20/19 06:15 06:15 06:15 WBC 5.0 RBC 4.69 Hgb 14.0 Hct 42.0 MCV 89.5 MCH 29.8 MCHC 33.3 RDW 13.6 Plt Count 230 MPV 8.3 Absolute Neuts (auto) 1.5 Neutrophils % 29.6 L Lymphocytes % 54.6 H Monocytes % 9.2 Eosinophils % 5.9 H Basophils % 0.7 Nucleated RBC % 0 PT with INR INR Sodium 140 Potassium 3.8 Chloride 109 H Carbon Dioxide 26 Anion Gap 5 L BUN 11.2 Creatinine 0.8 Est GFR (CKD-EPI)AfAm 122.43 Est GFR (CKD-EPI)NonAf 105.63 Random Glucose 103 Hemoglobin A1c % 5.7 Calcium 8.7 Magnesium 1.9 Total Bilirubin AST ALT Alkaline Phosphatase Creatine Kinase Creatine Kinase Index CK-MB (CK-2) Troponin I < 0.02 Total Protein Albumin Triglycerides 81 Cholesterol 113 Total LDL Cholesterol 56 HDL Cholesterol 43 TSH 0.21 L Free T4 Opiates Screen Methadone Screen Barbiturate Screen Phencyclidine Screen Ur Amphetamines Screen MDMA (Ecstasy) Screen Benzodiazepines Screen Cocaine Screen U Marijuana (THC) Screen Alcohol, Quantitative 07/20/19 07/20/19 07/20/19 08:00 10:00 11:35 WBC RBC Hgb Hct MCV MCH MCHC RDW Plt Count MPV Absolute Neuts (auto) Neutrophils % Lymphocytes % Monocytes % Eosinophils % Basophils % Nucleated RBC % PT with INR INR Sodium Potassium Chloride Carbon Dioxide Anion Gap BUN Creatinine Est GFR (CKD-EPI)AfAm Est GFR (CKD-EPI)NonAf Random Glucose Hemoglobin A1c % Calcium Magnesium Total Bilirubin AST ALT Alkaline Phosphatase Creatine Kinase 138 Creatine Kinase Index CK-MB (CK-2) Troponin I < 0.02 Total Protein Albumin Triglycerides Cholesterol Total LDL Cholesterol HDL Cholesterol TSH Free T4 1.16 Opiates Screen Negative Methadone Screen Negative Barbiturate Screen Negative Phencyclidine Screen Negative Ur Amphetamines Screen Negative MDMA (Ecstasy) Screen Negative Benzodiazepines Screen Positive A* Cocaine Screen Positive A* U Marijuana (THC) Screen Negative Alcohol, Quantitative < 3 Current Medications Generic Name Dose Route Start Last Admin Trade Name Freq PRN Reason Stop Dose Admin Aspirin 81 mg 07/20/19 10:00 07/20/19 11:00 Asa - PO 81 mg DAILY YOCASTA Administration Atorvastatin Calcium 40 mg 07/20/19 22:00 Lipitor - PO HS YOCASTA Chlordiazepoxide HCl 10 mg 07/20/19 04:54 Librium - PO 07/21/19 23:59 Q8H PRN Signs/symptoms of Withdrawal Chlordiazepoxide HCl 25 mg 07/20/19 05:00 07/20/19 14:38 Librium - PO 07/20/19 21:01 25 mg Q8H YOCASTA Administration Chlordiazepoxide HCl 15 mg 07/21/19 05:00 Librium - PO 07/21/19 21:01 Q8H YOCASTA Chlordiazepoxide HCl 10 mg 07/22/19 05:00 Librium - PO 07/22/19 21:01 Q8H YOCASTA Chlordiazepoxide HCl 10 mg 07/23/19 05:00 Librium - PO 07/23/19 05:01 ONCE ONE Folic Acid 1 mg 07/20/19 10:00 07/20/19 11:00 Folic Acid - PO 1 mg DAILY YOCASTA Administration Heparin Sodium (Porcine) 5,000 unit 07/20/19 06:00 07/20/19 15:47 Heparin - SQ 5,000 unit TID YOCASTA Administration Multivitamins/Minerals/Vitamin C 1 tab 07/20/19 10:00 07/20/19 11:00 Tab-A-Vit - PO 1 tab DAILY YOCASTA Administration Nitroglycerin 0.3 mg 07/20/19 05:49 Nitrostat - SL Q5M PRN FOR CHEST PAIN Thiamine HCl 100 mg 07/20/19 10:00 07/20/19 11:00 Vitamin B1 - PO 100 mg DAILY YOCASTA Administration Home Medications Medication Instructions Recorded Atorvastatin Calcium 40 mg PO HS 11/10/18 Aspirin [ASA -] 81 mg PO DAILY #14 tab.chew 11/15/18 Metoprolol Tartrate [Lopressor -] 50 mg PO BID #28 tablet 11/15/18 ASSESSMENT AND PLAN: 48 year old male with history of Atrial Fibrillation (declined AC in the past), HTN, HLD, Polysubstance Abuse (Alcohol, Cocaine, Methamphetamine) presents from [facility] with palpitations and chest pain, which radiated up to left side of neck and down left arm. 1. Chest Pain ECG - Atrial fibrillation, rate 104, q waves V5/6 TropI neg x 3. Echo shows mildly depressed EF Evaluated by Cardio - ACS excluded based on negative work-up and recent reported negative stress test at [facility]. Previously on Aspirin/Statin - will resume. Further management as per Cardiology. 2. Hx Paroxysmal Atrial fibrillation with RVR HR in low 100s For overnight telemonitoring and start Coreg if rate persistently elevated as per Cardiology. 3. Polysubstance Abuse (Alcohol, Cocaine, Metamphetamines) with Acute Alcohol Withdrawal Librium as per [place] s/p Banana Bag MVI, Thiamine, Folic Acid. 4. HTN - BP on high side likely sec to withdrawal. Will monitor. 5. Systolic CHF - no evidence of acute exacerbation EF 45-50% ?sec to cocaine use Further Ix as per Cardiology. DVT Px - Heparin SQ
[2019-07-20] MEDS ORDERED: ATORVASTATIN CA 40 MG TABLET (FP) PO SCH (22:00)
[2019-07-21] MEDS: chlordiazePOXIDE 5 MG CAPSULE PO SCH ×2 (05:36→12:34)
[2019-07-21] MEDS: HEPARIN NA (PORCINE) 5,000 UNITS/ML 1ML VIAL SQ SCH (05:40)
[2019-07-21 07:23] LABS: BASO % 0.6 % (0-2.0); EOS % 6.5 % (0-4.5); HEMATOCRIT 40.2 % (35.4-49); HEMOGLOBIN 13.6 GM/dL (11.7-16.9); LYMPH % 49.8 % (8-40); MCH 29.9 pg (25.7-33.7); MCHC 33.7 g/dl (32.0-35.9); MEAN CELL VOLUME 88.7 fl (80-96); MONO % 9.6 % (3.8-10.2); NEUT % 33.5 % (42.8-82.8); PLATELET COUNT 219 K/MM3 (134-434); RBC 4.53 M/mm3 (4.00-5.60); RDW 13.5 % (11.9-15.9); WHITE BLOOD COUNT 5.3 K/mm3 (4.0-10.0)
[2019-07-21 07:34] LABS: BILIRUBIN,TOTAL 0.4 mg/dL (0.2-1); BLOOD UREA NITROGEN 14.7 mg/dL (7-18); CALCIUM 8.7 mg/dL (8.5-10.1); CREATININE 1.1 mg/dL (0.55-1.3); TOT PROT 5.3 g/dl (6.4-8.2)
[2019-07-21] MEDS ORDERED: PT OWN MED DRAWER 7, Y5N ONE (08:52)
[2019-07-21] MEDS: ASPIRIN 81 MG CHEWABLE TABLETS PO SCH (09:04)
[2019-07-21] MEDS: THIAMINE HCL 100 MG TABLET (FP) PO SCH (09:04)
[2019-07-21] MEDS: MULTIVITAMINS (DAILY MVI) TABLET (FP) PO SCH (09:04)
[2019-07-21] MEDS: FOLIC ACID 1 MG TABLET (FP) PO SCH (09:04)
[2019-07-21] MEDS ORDERED: CARVEDILOL 3.125 MG TABLET (FP) PO SCH (10:00)
[2019-07-21 11:24] VITALS: BP 121/75; PULSE 77; TEMP 98.6
[2019-07-21 11:42] LABS: MAGNESIUM 1.9 mg/dL (1.8-2.4); PHOSPHOROUS 2.2 mg/dL (2.5-4.9)
[2019-07-21] MEDS ORDERED: NAPH,MB-DB/K PH,MBDB POWDER PACKET PO ONE (12:30)
[2019-07-21] MEDS ORDERED: MAGNESIUM OXIDE 400 MG TABLET (FP) PO ONE (12:30)
--- NOTE | 2019-07-21 13:26 | DS ---
Physical Exam: SUBJECTIVE: Patient seen and examined OBJECTIVE: Vital Signs Period Temp Pulse Resp BP Sys/Mcdowell Pulse Ox Last 24 Hr 98 F-98.6 F 75-116 18-20 115-151/75-97 96-99 PHYSICAL EXAM GENERAL: The patient is awake, alert, and fully oriented, in no acute distress. HEAD: Normal with no signs of trauma. EYES: PERRL, extraocular movements intact, sclera anicteric, conjunctiva clear. ENT: Ears normal, nares patent, oropharynx clear without exudates, moist mucous membranes. NECK: Trachea midline, full range of motion, supple. LUNGS: Breath sounds equal, clear to auscultation bilaterally, no wheezes, no crackles, no accessory muscle use. HEART: Regular rate and rhythm, S1, S2 without murmur, rub or gallop. ABDOMEN: Soft, nontender, nondistended, normoactive bowel sounds, no guarding, no rebound, no hepatosplenomegaly, no masses. EXTREMITIES: 2+ pulses, warm, well-perfused, no edema. NEUROLOGICAL: Cranial nerves II through XII grossly intact. Normal speech, gait not observed. PSYCH: Normal mood, normal affect. SKIN: Warm, dry, normal turgor, no rashes or lesions noted. LABS Laboratory Results - last 24 hr 07/20/19 07/21/19 07/21/19 11:35 06:06 06:06 WBC 5.3 RBC 4.53 Hgb 13.6 Hct 40.2 MCV 88.7 MCH 29.9 MCHC 33.7 RDW 13.5 Plt Count 219 MPV 9.0 Absolute Neuts (auto) 1.8 Neutrophils % 33.5 L Lymphocytes % 49.8 H Monocytes % 9.6 Eosinophils % 6.5 H Basophils % 0.6 Nucleated RBC % 0 Sodium 144 Potassium 4.0 Chloride 110 H Carbon Dioxide 28 Anion Gap 6 L BUN 14.7 Creatinine 1.1 Est GFR (CKD-EPI)AfAm 91.52 Est GFR (CKD-EPI)NonAf 78.96 Random Glucose 126 H Calcium 8.7 Phosphorus 2.2 L Magnesium 1.9 Total Bilirubin 0.4 AST 15 ALT 23 Alkaline Phosphatase 77 Total Protein 5.3 L Albumin 3.0 L Opiates Screen Negative Methadone Screen Negative Barbiturate Screen Negative Phencyclidine Screen Negative Ur Amphetamines Screen Negative MDMA (Ecstasy) Screen Negative Benzodiazepines Screen Positive A* Cocaine Screen Positive A* U Marijuana (THC) Screen Negative HOSPITAL COURSE: Date of Admission:07/20/19 Pt sent from [facility] during detox of ETOH, Cocaine, and crystal meth who was admitted for evaluation of chest pain with concurrent AFIB with RVR. Pt was monitored on tele while here. Cardiac profile performed was negative X 3. Pt was seen by Dr. Bernard who recommended starting carvedilol 3.125 BID for rate control. Obtained stress test in [facility] from 1 yr ago which was found to be normal. Pt did not tolerate stress test here due to dizziness, so based off of negative prior stress test and negative trops pt was cleared for discharge on the expectation that this was cocaine induced coronary vasospasm and recommending cessation of cocaine use indefinitely. Pt refusing AC but ASA 81mg daily was recommended as well as lipitor 40HS, thiamine, folic acid, and to continue his librium protocl at [facility]. Pt was well informed to follow up with cardio in 1 week for evaluation of this new onset systolic dysfunction with EF of 40-50% on echo here as well as AF. Pt was told to repeat LFT's in 3 wks due to starting a statin. Pt expected to follow up with his PCP in 1 week. Pt was advised to stop drinking alcohol or using illegal drugs. He was told to return to the ER if he had any acute worsening of his current symptoms or: cp, sob, bowel/bladder complaints, numbness or weakness in his extremities. Date of Discharge: 07/21/19 <Vinod Quintero - Last Filed: 07/21/19 13:17> Physical Exam: SUBJECTIVE: Patient seen and examined OBJECTIVE: Vital Signs Period Temp Pulse Resp BP Sys/Mcdowell Pulse Ox Last 24 Hr 98 F-98.6 F 75-116 18-20 115-151/75-97 96-99 PHYSICAL EXAM GENERAL: The patient is awake, alert, and fully oriented, in no acute distress. HEAD: Normal with no signs of trauma. EYES: PERRL, extraocular movements intact, sclera anicteric, conjunctiva clear. ENT: Ears normal, nares patent, oropharynx clear without exudates, moist mucous membranes. NECK: Trachea midline, full range of motion, supple. LUNGS: Breath sounds equal, clear to auscultation bilaterally, no wheezes, no crackles, no accessory muscle use. HEART: Regular rate and rhythm, S1, S2 without murmur, rub or gallop. ABDOMEN: Soft, nontender, nondistended, normoactive bowel sounds, no guarding, no rebound, no hepatosplenomegaly, no masses. EXTREMITIES: 2+ pulses, warm, well-perfused, no edema. NEUROLOGICAL: Cranial nerves II through XII grossly intact. Normal speech, gait not observed. PSYCH: Normal mood, normal affect. SKIN: Warm, dry, normal turgor, no rashes or lesions noted. LABS Laboratory Results - last 24 hr 07/20/19 07/21/19 07/21/19 11:35 06:06 06:06 WBC 5.3 RBC 4.53 Hgb 13.6 Hct 40.2 MCV 88.7 MCH 29.9 MCHC 33.7 RDW 13.5 Plt Count 219 MPV 9.0 Absolute Neuts (auto) 1.8 Neutrophils % 33.5 L Lymphocytes % 49.8 H Monocytes % 9.6 Eosinophils % 6.5 H Basophils % 0.6 Nucleated RBC % 0 Sodium 144 Potassium 4.0 Chloride 110 H Carbon Dioxide 28 Anion Gap 6 L BUN 14.7 Creatinine 1.1 Est GFR (CKD-EPI)AfAm 91.52 Est GFR (CKD-EPI)NonAf 78.96 Random Glucose 126 H Calcium 8.7 Phosphorus 2.2 L Magnesium 1.9 Total Bilirubin 0.4 AST 15 ALT 23 Alkaline Phosphatase 77 Total Protein 5.3 L Albumin 3.0 L Opiates Screen Negative Methadone Screen Negative Barbiturate Screen Negative Phencyclidine Screen Negative Ur Amphetamines Screen Negative MDMA (Ecstasy) Screen Negative Benzodiazepines Screen Positive A* Cocaine Screen Positive A* U Marijuana (THC) Screen Negative Discharge Meds Medication Instructions Recorded Aspirin [ASA -] 81 mg PO DAILY tab.chew 07/21/19 Atorvastatin Ca [Lipitor] 40 mg PO HS tablet 07/21/19 Carvedilol [Coreg -] 3.125 mg PO BID tablet 07/21/19 Folic Acid - 1 mg PO DAILY tablet 07/21/19 Multivitamins [Multivit ([facility] 1 tab PO DAILY tab 07/21/19 Formulary)] Naph,Mb-Db/K pH,Mbdb [PHOS-NaK 1 packet PO BID 3 Days pow 07/21/19 PACKET -] Thiamine HCl [Vitamin B1 -] 100 mg PO DAILY tablet 07/21/19 Date of Admission:07/20/19 Date of Discharge: 07/21/19 <Elton Miranda - Last Filed: 07/21/19 13:37> Discharge Summary Problems reviewed: Yes Reason For Visit: CHEST PAIN - Home Medications Comprehensive Discharge Medication List: Ambulatory Orders Aspirin [ASA -] 81 mg PO DAILY tab.chew 07/21/19 Atorvastatin Ca [Lipitor] 40 mg PO HS tablet 07/21/19 Carvedilol [Coreg -] 3.125 mg PO BID tablet 07/21/19 Folic Acid - 1 mg PO DAILY tablet 07/21/19 Thiamine HCl [Vitamin B1 -] 100 mg PO DAILY tablet 07/21/19 <Vinod Quintero - Last Filed: 07/21/19 13:17> - Home Medications Comprehensive Discharge Medication List: Ambulatory Orders Aspirin [ASA -] 81 mg PO DAILY tab.chew 07/21/19 Atorvastatin Ca [Lipitor] 40 mg PO HS tablet 07/21/19 Carvedilol [Coreg -] 3.125 mg PO BID tablet 07/21/19 Folic Acid - 1 mg PO DAILY tablet 07/21/19 Multivitamins [Multivit ([facility] Formulary)] 1 tab PO DAILY tab 07/21/19 Naph,Mb-Db/K pH,Mbdb [PHOS-NaK PACKET -] 1 packet PO BID 3 Days pow 07/21/19 Thiamine HCl [Vitamin B1 -] 100 mg PO DAILY tablet 07/21/19 <Elton Miranda - Last Filed: 07/21/19 13:37> Condition: Improved - Instructions Diet, Activity, Other Instructions: You were admitted for evaluation of chest pain. While you were here we monitored you on telemetry (cardiac monitoring floor). You were found to be in rapid atrial fibrillation (fast irregular heart beat). We treated your atrial fibrillation and you are now back in a regular heart rythym. Cocaine use is bad for youe heart and will continue to cause you chest pain if you continue to use cocaine.We strongly recommend you stop drinking alcohol as well as using cocaine or other illegal drugs. We obtained your stress test result from [facility] which was normal. On cardiac imaging here (echo) you were found to have a low ejection fraction (decreased blood pumping from your heart) that requires further cardiology (Dr. Bernard) evaluation after you leave here. Please follow up with Dr. Bernard for evaluation in 1 week, it is very important to continue to monitor youre heart function. Otherwise you have been cleared by the primary care team and cardiology for discharge. Please take the following medications after you leave here: Aspirin 81 mg by mouth once daily to help prevent any clot formation Lipitor 40mg by mouth before bed once daily for prevention of plaque buildup. You will need to have your liver enzymes checked in 3 weeks after starting this medication at your next primary care doctor visit. Coreg 3.125 mg twice daily (once in AM and once before bedtime) by mouth for your atrial fibrillation. You can return back to [facility] and continue your librium protocol there as Dr. Martínez recommends to continue your detox from alcohol You should continue all your other home medications as prescribed. You need to follow up with your Primary Care Physician within one week, if you do not have one you can follow with our clinic. You should return to the emergency room if you experience any worsening of your current symptoms or: chest pain, shortness of breath, weakness, bowel/bladder complaints. Referrals: [facility] [place] [Provider Group] - 1 Week Pardeep Bernard MD [Staff Physician] - 1 Week Terence Martínez DO [Primary Care Provider] - 1 Week Disposition: TRANSFER ACUTE CARE/OTHER HOSP - Discharge Referral Referred to [facility] No <Vinod Quintero - Last Filed: 07/21/19 13:17> ATTENDING PHYSICIAN STATEMENT I saw and evaluated the patient. I reviewed the resident's note and discussed the case with the resident. I agree with the resident's findings and plan as documented. SUBJECTIVE: OBJECTIVE: ASSESSMENT AND PLAN: <Vinod Quintero - Last Filed: 07/21/19 13:17> ATTENDING PHYSICIAN STATEMENT I saw and evaluated the patient. I reviewed the resident's note and discussed the case with the resident. I agree with the resident's findings and plan as documented. SUBJECTIVE: OBJECTIVE: ASSESSMENT AND PLAN: <Elton Miranda - Last Filed: 07/21/19 13:37>
[2019-07-21] MEDS ORDERED: NAPH,MB-DB/K PH,MBDB POWDER PACKET PO SCH (13:30)
--- NOTE | 2019-07-21 13:54 | PN ---
Teaching Attending Note Name of Resident: Vinod Quintero ATTENDING PHYSICIAN STATEMENT I saw and evaluated the patient. I reviewed the resident's note and discussed the case with the resident. I agree with the resident's findings and plan as documented. SUBJECTIVE: Improved chest and neck pain. No fever/chills/cough/sputum. No palpitations/SOB. OBJECTIVE: Afebrile, Hemodynamically Stable. Reverted to SR spontaneously after period of RVR. No overt signs of withdrawal. Last Vital Signs Temp Pulse Resp BP Pulse Ox 98.6 F 77 18 121/75 99 07/21/19 11:00 07/21/19 11:00 07/21/19 11:07/21/19 11:07/21/19 05:42 Heart - S1, S2,regular Lungs - clear to auscultation Abdomen - Soft, non-tender. Bowel Sounds normal. Extremities - no edema, no calf tenderness. Laboratory Results - last 24 hr 07/20/19 07/21/19 07/21/19 11:35 06:06 06:06 WBC 5.3 RBC 4.53 Hgb 13.6 Hct 40.2 MCV 88.7 MCH 29.9 MCHC 33.7 RDW 13.5 Plt Count 219 MPV 9.0 Absolute Neuts (auto) 1.8 Neutrophils % 33.5 L Lymphocytes % 49.8 H Monocytes % 9.6 Eosinophils % 6.5 H Basophils % 0.6 Nucleated RBC % 0 Sodium 144 Potassium 4.0 Chloride 110 H Carbon Dioxide 28 Anion Gap 6 L BUN 14.7 Creatinine 1.1 Est GFR (CKD-EPI)AfAm 91.52 Est GFR (CKD-EPI)NonAf 78.96 Random Glucose 126 H Calcium 8.7 Phosphorus 2.2 L Magnesium 1.9 Total Bilirubin 0.4 AST 15 ALT 23 Alkaline Phosphatase 77 Total Protein 5.3 L Albumin 3.0 L Opiates Screen Negative Methadone Screen Negative Barbiturate Screen Negative Phencyclidine Screen Negative Ur Amphetamines Screen Negative MDMA (Ecstasy) Screen Negative Benzodiazepines Screen Positive A* Cocaine Screen Positive A* U Marijuana (THC) Screen Negative Discharge Medications Medication Instructions Recorded Aspirin [ASA -] 81 mg PO DAILY tab.chew 07/21/19 Atorvastatin Ca [Lipitor] 40 mg PO HS tablet 07/21/19 Carvedilol [Coreg -] 3.125 mg PO BID tablet 07/21/19 Folic Acid - 1 mg PO DAILY tablet 07/21/19 Multivitamins [Multivit ([facility] 1 tab PO DAILY tab 07/21/19 Formulary)] Naph,Mb-Db/K pH,Mbdb [PHOS-NaK 1 packet PO BID 3 Days pow 07/21/19 PACKET -] Thiamine HCl [Vitamin B1 -] 100 mg PO DAILY tablet 07/21/19 ASSESSMENT AND PLAN: 48 year old male with history of Atrial Fibrillation (declined AC in the past), HTN, HLD, Polysubstance Abuse (Alcohol, Cocaine, Methamphetamine) presented from [facility] with palpitations and chest pain, which radiated up to left side of neck and down left arm. he was found to have Atrial fibrillation with RVR, which reverted to SR spontaneously overnight. He was seen by Cardiology and recommended to resume his home regimen of Aspirin and Statin in addition to BB ( switched from Metoprolol to Coreg given ongoing Cocaine use). 1. Chest Pain ECG - Atrial fibrillation, rate 104, q waves V5/6 TropI neg x 3. Echo shows mildly depressed EF Evaluated by Cardio - ACS excluded based on negative work-up and recent reported negative stress test at [facility]. Previously on Aspirin/Statin - will resume. Further management as per Cardiology. 2. Hx Paroxysmal Atrial fibrillation with RVR - reverted spontaneously to SR As per Cardiology (resident discussion with Dr. Bernard), start Coreg 3.125mg BID. Cardiology follow up on discharge. 3. Polysubstance Abuse (Alcohol, Cocaine, Metamphetamines) with Acute Alcohol Withdrawal Librium as per CIWA s/p Banana Bag MVI, Thiamine, Folic Acid. Evaluated by Addiction medicine and accepted to [facility] by Dr. Martínez. 4. HTN - BP improved since starting Coreg. 5. Systolic CHF - no evidence of acute exacerbation EF 45-50% ?sec to cocaine/alcohol use Further Ix as per Cardiology. Substance cessation counselling done. Medically optimized for transfer to [facility]. 6. Hypokalemia - for ongoing oral repletion on discharge.
[2019-07-22] MEDS ORDERED: chlordiazePOXIDE HCL 10 MG CAPSULE PO SCH (05:00)
[2019-07-23] MEDS ORDERED: chlordiazePOXIDE HCL 10 MG CAPSULE PO ONE (05:00)
== END 2019-07-21 13:27 | disposition short-term general hospital (02) ==
LOC: JER 00:30 → INTOOBSV 04:31 → JERBED 04:31 → J4W 15:00
PROVIDERS: ADMIT Internal Medicine
PROC: 3E033GC Introduction of Other Therapeutic Substance into Peripheral Vein, Percutaneous Approach (ICD-10-PCS; principal; 2019-07-20)
PROC: 3E033NZ Introduction of Analgesics, Hypnotics, Sedatives into Peripheral Vein, Percutaneous Approach (ICD-10-PCS; 2019-07-20)
PROC: 3E013GC Introduction of Other Therapeutic Substance into Subcutaneous Tissue, Percutaneous Approach (ICD-10-PCS; 2019-07-20)
PROC: 3E0F7GC Introduction of Other Therapeutic Substance into Respiratory Tract, Via Natural or Artificial Opening (ICD-10-PCS; 2019-07-20)
DX: R07.89 Other chest pain (principal); I11.0 Hypertensive heart disease with heart failure; I48.0 Paroxysmal atrial fibrillation; I50.20 Unspecified systolic (congestive) heart failure; E78.5 Hyperlipidemia, unspecified; R73.03 Prediabetes; F10.230 Alcohol dependence with withdrawal, uncomplicated; F14.10 Cocaine abuse, uncomplicated; F15.10 Other stimulant abuse, uncomplicated; F17.210 Nicotine dependence, cigarettes, uncomplicated; Z79.82 Long term (current) use of aspirin
CPT/HCPCS: 36415; 71045-TC-FY; 80048; 80053; 80061; 80307; 82550; 82553; 83036; 83721; 83735; 84100; 84439; 84443; 84484; 85025; 85610; 93017; 93018; 93306-TC; 94640; 96365; 96366; 96372; 96375; 99285-25; G0378; J0131; J1644; J7030

== ENCOUNTER 2019-07-21 13:36 | Inpatient (IN) | payer OTHER ==
[2019-07-21 16:41] VITALS: BMI 34.7
--- NOTE | 2019-07-21 17:13 | HP ---
CIWA Score Nausea/Vomitin-No Nausea/No Vomiting Muscle Tremors: None Anxiety: 0-No Anxiety, at Ease Agitation: 0-Normal Activity Paroxysmal Sweats: No Perspiration Orientation: 0-Oriented Tacttile Disturbances: 0-None Auditory Disturbances: 0-None Visual Disturbances: 0-None Headache: 0-None Present CIWA-Ar Total Score: 0 - Admission Criteria OASAS Guidelines: Admission for Medically Managed Detox: Requires at least one of the followin. CIWA greater than 12 2. Seizures within the past 24 hours 3. Delirium tremens within the past 24 hours 4. Hallucinations within the past 24 hours 5. Acute intervention needed for co occurring medical disorder 6. Acute intervention needed for co occurring psychiatric disorder 7. Severe withdrawal that cannot be handled at a lower level of care (continued vomiting, continued diarrhea, abnormal vital signs) requiring intravenous medication and/or fluids 8. Admitting History and Physical - Primary Care Physician PCP: yoan - Admission Chief Complaint: seeking to resume detox History of Present Illness: Seeking detox from alcohol, cocaine, crystal meth. Had initiated the detox program several days ago. He was sent to the hospital briefly because of afib with RVR and was sent back to this facility to resume detox. States he is on the waiting list at [facility] and is trying to initiate his detox at this time. Of note, pt was counselled on risk and benefit of AC for Afib. He states he does not want to start AC at this time. 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 Has appointment to see his PCP. EtOH: drinking 1/2 pint or 2 X 24oz ravin daily since age 21. Has withdrawn in the past and had shakes. No seizures. Never blacked out. Has done detox and rehab for EtOH. Cocaine: using since age 25. Typically between every other day or up to 3 times daily. Has withdrawn. Smokes or sniffs. Never injected. Crystal Meth: first use a few months ago. Then used for 3 days straight this last week. Smoking. Smokes: 7 cig/d (down from 12/d) since age 21 Presently feels ok. No tremors, shakes, anxiety, agitation, no muscle tremors, auditory/visual hallucinations. PMH: Afib, HTN, DM, substance abuse PSH: no surgeries Psychiatric: none Meds: metoprolol, asa 81, atorvastatin, multivitamin All: none Soc: Lives at home with . Sexually active. Does not use condoms. 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 No: Renal Failure Heme/Onc: Yes: Anemia Infectious Disease: No: HIV Psych: No: Bipolar, Depression - Past Surgical History Past Surgical History: Yes: None - Smoking History Smoking history: Current every day smoker Have you smoked in the past 12 months: Yes Aproximately how many cigarettes per day: 7 - Alcohol/Substance Use Hx Alcohol Use: Yes History of Substance Use: reports: Cocaine, Heroin, Marijuana. denies: Prescription, Tranquilizers - Social History Usual Living Arrangement: Yes: With Spouse ADL: Independent History of Recent Travel: No Admission [facility] Allergies/Adverse Reactions: Allergies Allergy/AdvReac Type Severity Reaction Status Date / Time No Known Allergies Allergy Verified 07/21/19 16:28 - Review of Systems Constitutional: No Symptoms Reported EENT: reports: No Symptoms Reported Respiratory: reports: No Symptoms reported Cardiac: reports: No Symptoms Reported GI: reports: No Symptoms Reported : reports: No Symptoms Reported Musculoskeletal: reports: No Symptoms Reported Integumentary: reports: No Symptoms Reported Neuro: reports: No Symptoms reported Endocrine: reports: No Symptoms Reported Hematology: reports: No Symptoms Reported Psychiatric: reports: Orientated x3 Patient History - Patient Medical History Hx Anemia: No Hx Asthma: No Hx Chronic Obstructive Pulmonary Disease (COPD): No Hx Cancer: No Hx Cardiac Disorders: Yes (A - Fib ) Hx Congestive Heart Failure: No Hx Hypertension: Yes Hx Hypercholesterolemia: Yes Hx Pacemaker: No HX Cerebrovascular Accident: No Hx Seizures: No Hx Dementia: No Hx Diabetes: Yes (Pre-Diabetic Control with diet ) Hx Gastrointestinal Disorders: No Hx Liver Disease: No Hx Genitourinary Disorders: No Hx Sexually Transmitted Disorders: Yes (Gonorrhea ) Hx Renal Disease (ESRD): No Hx Thyroid Disease: No Hx Human Immunodeficiency Virus (HIV): No Hx Hepatitis C: No Hx Depression: No Hx Suicide Attempt: No Hx Bipolar Disorder: Yes (not on meds for 10 years,do not want to see psychiatrist) Hx Schizophrenia: No - Patient Surgical History Past Surgical History: No Hx Neurologic Surgery: No Hx Cataract Extraction: No Hx Cardiac Surgery: No Hx Lung Surgery: No Hx Breast Surgery: No Hx Breast Biopsy: No Hx Abdominal Surgery: No Hx Appendectomy: No Hx Cholecystectomy: No Hx Genitourinary Surgery: No Hx Section: No Hx Orthopedic Surgery: No Hx Hysterectomy: No Anesthesia Reaction: No - PPD History Date: 11/12/18 Results: 0 mm - Smoking Cessation Smoking history: Current every day smoker Have you smoked in the past 12 months: Yes Aproximately how many cigarettes per day: 7 Hx Chewing Tobacco Use: No Initiated information on smoking cessation: Yes 'Breaking Loose' booklet given: 07/21/19 - Substances abused Alcohol Substance route: Oral Frequency: 3-6 times per week Amount used: 2 pints of marce Age of first use: 21 Date of last use: 07/18/19 Cocaine Substance route: Inhalation Frequency: 3-6 times per week Amount used: 500 dollars Age of first use: 25 Date of last use: 07/18/19 Other Other (specify): Crystal Methadone Substance route: Inhalation Amount used: 300 dollars Age of first use: 48 Date of last use: 07/18/19 Admission Physical Exam BHS - Vital Signs Vital Signs: Vital Signs - 24 hr 07/21/19 16:34 Temperature 97.6 F Pulse Rate 84 Respiratory 16 Rate Blood Pressure 131/87 Breathalyzer - Breathalyzer Breathalyzer: 0 Urine Drug Screen - Test Device Lot number: [id number] Expiration date: 05/16/21 - Control Is test valid?: Yes - Results Drug screen NEGATIVE: No Urine drug screen results: THC-Marijuana, BOOKER-Cocaine, BZO-Benzodiazepines Inpatient Rehab Admission - Rehab Decision to Admit Inpatient rehab admission?: No
[2019-07-21] MEDS ORDERED: MAGNESIUM CITRATE 300 ML BOTTLE PO PRN (17:59)
[2019-07-21] MEDS ORDERED: MENTHOL/PHENOL 1 EACH UD MM PRN (17:59)
[2019-07-21] MEDS ORDERED: IBUPROFEN 400 MG TABLET (FP) PO PRN (17:59)
[2019-07-21] MEDS ORDERED: MAGNESIUM HYDROX 2400MG/30ML ORAL SUSPENSION 30 ML CUP PO PRN (17:59)
[2019-07-21] MEDS ORDERED: METHOCARBAMOL 500 MG TABLET PO PRN (17:59)
[2019-07-21] MEDS ORDERED: BISMUTH SUBSALICYLATE 524 MG/30 ML UD PO PRN (17:59)
[2019-07-21] MEDS ORDERED: MELATONIN 5 MG TABLETS PO PRN (17:59)
[2019-07-21] MEDS ORDERED: hydrOXYzine PAMOATE 25 MG CAPSULE (FP) PO PRN (17:59)
[2019-07-21] MEDS ORDERED: MAG HYDROX/AL HYDROX/SIMETH 30 ML UNIT-DOSE CUP PO PRN (17:59)
[2019-07-21] MEDS ORDERED: ACETAMINOPHEN 325 MG TABLET (FP) PO PRN ×2 (17:59)
--- NOTE | 2019-07-21 18:21 | PN ---
Teaching Attending Note Name of Resident: Jassi Marcano ATTENDING PHYSICIAN STATEMENT I saw and evaluated the patient. I reviewed the resident's note and discussed the case with the resident. I agree with the resident's findings and plan as documented. SUBJECTIVE: pt here to complete etoh detox after recent hospitalization , agreeable to f/up w/ cardiology for AC . PMH: Afib, HTN, DM OBJECTIVE: wnwd Vital Signs - 24 hr 07/21/19 16:34 Temperature 97.6 F Pulse Rate 84 Respiratory 16 Rate Blood Pressure 131/87 ASSESSMENT AND PLAN: AUD - Librium detox
[2019-07-21] MEDS ORDERED: chlordiazePOXIDE 5 MG CAPSULE PO ONE (21:00)
[2019-07-21] MEDS: ATORVASTATIN CA 40 MG TABLET (FP) PO SCH (22:09)
[2019-07-21] MEDS: METOPROLOL TARTRATE 50 MG TABLET (FP) PO SCH (22:09)
[2019-07-21] MEDS: THIAMINE HCL 100 MG TABLET (FP) PO SCH (22:09)
[2019-07-22] MEDS: chlordiazePOXIDE HCL 10 MG CAPSULE PO SCH ×3 (07:31→21:41)
[2019-07-22] MEDS: ASPIRIN 81 MG CHEWABLE TABLETS PO SCH (11:02)
[2019-07-22] MEDS: PRENATAL VITAMINS W/ FOLIC ACID TABLET (FP) PO SCH (11:02)
[2019-07-22] MEDS: METOPROLOL TARTRATE 50 MG TABLET (FP) PO SCH ×2 (11:02→21:45)
[2019-07-22] MEDS: FOLIC ACID 1 MG TABLET (FP) PO SCH (11:02)
[2019-07-22] MEDS: NICOTINE 14 MG/24 HOURS TOPICAL PATCH TD SCH (11:03)
--- NOTE | 2019-07-22 11:26 | PN ---
S CIWA - CIWA Score Nausea/Vomitin-No Nausea/No Vomiting Muscle Tremors: 1-None Visible, but [place] Anxiety: 1-Mildly Anxious Agitation: 1-Slight > Activity Paroxysmal Sweats: No Perspiration Orientation: 0-Oriented Tacttile Disturbances: 0-None Auditory Disturbances: 0-None Visual Disturbances: 0-None Headache: 0-None Present CIWA-Ar Total Score: 3 BHS Progress Note (SOAP) Subjective: sweats restless Objective: 07/22/19 11:26 Vital Signs Temperature 97.9 F 07/22/19 09:50 Pulse Rate 73 07/22/19 09:50 Respiratory Rate 18 07/22/19 09:50 Blood Pressure 130/78 07/22/19 09:50 O2 Sat by Pulse Oximetry (%) Laboratory Tests 07/22/19 07/22/19 06:09 06:10 POC Glucometer 88 98 [id number] ambulating no acute distress Assessment: 07/22/19 11:27 mild withdrawal sx Plan: complete detox d/c in am
--- NOTE | 2019-07-22 12:50 | EKG ---
Test Reason : Blood Pressure : / mmHG Vent. Rate : 114 BPM Atrial Rate : 208 BPM P-R Int : 000 ms QRS Dur : 088 ms QT Int : 360 ms P-R-T Axes : 000 -14 013 degrees QTc Int : 496 ms ATRIAL FIBRILLATION WITH RAPID VENTRICULAR RESPONSE WITH PREMATURE VENTRICULAR OR ABERRANTLY CONDUCTED COMPLEXES NONSPECIFIC T WAVE ABNORMALITY ABNORMAL ECG WHEN COMPARED WITH ECG OF 18-JUL-2019 18:07, ATRIAL FIBRILLATION HAS REPLACED SINUS RHYTHM Confirmed by NADIA HERNANDEZ MD ([id number]) on 07/22/2019 12:49:36 PM Referred By: Confirmed By:NADIA HERNANDEZ MD
[2019-07-22] MEDS: ATORVASTATIN CA 40 MG TABLET (FP) PO SCH (21:45)
[2019-07-22] MEDS: THIAMINE HCL 100 MG TABLET (FP) PO SCH (21:45)
[2019-07-23] MEDS ORDERED: chlordiazePOXIDE HCL 10 MG CAPSULE PO ONE (08:00)
--- NOTE | 2019-07-23 09:50 | PN ---
S CIWA - CIWA Score Nausea/Vomitin-No Nausea/No Vomiting Muscle Tremors: None Anxiety: 0-No Anxiety, at Ease Agitation: 0-Normal Activity Paroxysmal Sweats: No Perspiration Orientation: 0-Oriented Tacttile Disturbances: 0-None Auditory Disturbances: 0-None Visual Disturbances: 0-None Headache: 0-None Present CIWA-Ar Total Score: 0 BHS Progress Note (SOAP) Subjective: Pt reports feeling much better and denies any discomfort this morning. Recieved last dose of Librium 10 mg earlier this morning. Pt met with counselor Darlin Gutierrez and planned for discharge to rehab today. Pt interested in going to aftercare-Rehab. Objective: 07/23/19 11:42 Vital Signs - 24 hr 07/22/19 07/22/19 07/22/19 13:59 17:21 21:32 Temperature 97.3 F L 98.2 F 98.1 F Pulse Rate 71 70 73 Respiratory 18 18 18 Rate Blood Pressure 125/80 127/75 118/73 07/23/19 07/23/19 07/23/19 00:30 03:20 07:01 Temperature 97.7 F Pulse Rate 64 Respiratory 18 18 18 Rate Blood Pressure 125/93 07/23/19 11:26 Temperature 97.9 F Pulse Rate 71 Respiratory 19 Rate Blood Pressure 138/67 Laboratory Tests 07/22/19 07/22/19 07/22/19 06:09 06:10 16:44 POC Glucometer 88 98 114 07/23/19 05:58 POC Glucometer 90 Assessment: 07/23/19 11:42 decreased w/s Plan: Pt is stable and may be referred to rehab today if bed is available.
[2019-07-23] MEDS: METOPROLOL TARTRATE 50 MG TABLET (FP) PO SCH (11:04)
[2019-07-23] MEDS: NICOTINE 14 MG/24 HOURS TOPICAL PATCH TD SCH (11:05)
[2019-07-23] MEDS: PRENATAL VITAMINS W/ FOLIC ACID TABLET (FP) PO SCH (11:05)
[2019-07-23] MEDS: FOLIC ACID 1 MG TABLET (FP) PO SCH (11:05)
[2019-07-23] MEDS: ASPIRIN 81 MG CHEWABLE TABLETS PO SCH (11:05)
[2019-07-23 11:26] VITALS: PULSE 71; TEMP 97.9
--- NOTE | 2019-07-23 12:38 | DS ---
[facility] Detox Discharge Summary Admission Date: 07/21/19 Discharge Date: 07/23/19 - History Present History: Alcohol Dependence, Cocaine Dependence Additional Comments: Detox protocol completed today. Met with counselor and has been referred to rehab for CD aftercare. Pertinent Past History: HTN HLD Hx Pre DM Atrial Fib Hx Chest Pain Bipolar Disorder - Physical Exam Results Vital Signs: Vital Signs Temperature 97.9 F 07/23/19 11:26 Pulse Rate 71 07/23/19 11:26 Respiratory Rate 19 07/23/19 11:26 Blood Pressure 138/67 07/23/19 11:26 O2 Sat by Pulse Oximetry (%) Alert o x 3,denies s/h/i nad oob ambulating with steady gait. Pertinent Admission Physical Exam Findings: Laboratory Tests 07/22/19 07/22/19 07/22/19 06:09 06:10 16:44 POC Glucometer 88 98 114 07/23/19 05:58 POC Glucometer 90 - Treatment Hospital Course: Detox Protocol Followed, Detoxed Safely, Responded well, Discharged Condition Good, Rehab Referral Accepted Patient has Accepted a Rehab Referral to: [address] - Medication Discharge Medications: Ambulatory Orders Aspirin [ASA -] 81 mg PO DAILY tab.chew 07/21/19 Atorvastatin Ca [Lipitor] 40 mg PO HS tablet 07/21/19 Carvedilol [Coreg -] 3.125 mg PO BID tablet 07/21/19 Folic Acid - 1 mg PO DAILY tablet 07/21/19 Metoprolol Tartrate 50 mg PO BID 07/21/19 Multivitamins [Multivit ([facility] Formulary)] 1 tab PO DAILY tab 07/21/19 Naph,Mb-Db/K pH,Mbdb [PHOS-NaK PACKET -] 1 packet PO BID 3 Days pow 07/21/19 Thiamine HCl [Vitamin B1 -] 100 mg PO DAILY tablet 07/21/19 - Diagnosis (1) Cocaine dependence Current Visit: Yes Status: Chronic Qualifiers: Substance use status: uncomplicated Qualified Code(s): F14.20 - Cocaine dependence, uncomplicated (2) Alcohol dependence with withdrawal Current Visit: Yes Status: Acute Qualifiers: Complication of substance-induced condition: uncomplicated Qualified Code(s ): F10.230 - Alcohol dependence with withdrawal, uncomplicated (3) Hypertension Current Visit: Yes Status: Chronic Qualifiers: Hypertension type: essential hypertension Qualified Code(s): I10 - Essential (primary) hypertension (4) Hyperlipidemia Current Visit: Yes Status: Chronic Qualifiers: Hyperlipidemia type: unspecified Qualified Code(s): E78.5 - Hyperlipidemia , unspecified (5) History of atrial fibrillation Current Visit: Yes Status: Chronic (6) Nicotine dependence Current Visit: Yes Status: Chronic Qualifiers: Nicotine product type: cigarettes Substance use status: uncomplicated Qualified Code(s): F17.210 - Nicotine dependence, cigarettes, uncomplicated - AMA Did Patient Leave Against Medical Advice: No
[2019-07-23 14:35] VITALS: BP 130/89
== END 2019-07-23 02:55 | disposition other institution (70) | DRG 774 ==
LOC: YASAS 13:36 → Y6N 18:15
PROVIDERS: ADMIT Allergy & Immunology; ATTEND Allergy & Immunology
PROC: HZ2ZZZZ Detoxification Services for Substance Abuse Treatment (ICD-10-PCS; principal; 2019-07-21)
DX: F10.230 Alcohol dependence with withdrawal, uncomplicated (principal); F14.20 Cocaine dependence, uncomplicated; F17.210 Nicotine dependence, cigarettes, uncomplicated; I10 Essential (primary) hypertension; E78.5 Hyperlipidemia, unspecified; I48.91 Unspecified atrial fibrillation; R73.03 Prediabetes; Z87.438 Personal history of other diseases of male genital organs; Z79.82 Long term (current) use of aspirin
CPT/HCPCS: 82962; 93005; 93010

== ENCOUNTER 2019-07-23 16:23 | Inpatient (IN) | payer OTHER ==
[2019-07-23] MEDS ORDERED: IBUPROFEN 400 MG TABLET (FP) PO PRN (17:30)
[2019-07-23] MEDS ORDERED: MAGNESIUM CITRATE 300 ML BOTTLE PO PRN (17:30)
[2019-07-23] MEDS ORDERED: LOPERAMIDE HCL 2 MG CAPSULE PO PRN (17:30)
[2019-07-23] MEDS ORDERED: MAGNESIUM HYDROX 2400MG/30ML ORAL SUSPENSION 30 ML CUP PO PRN (17:30)
[2019-07-23] MEDS ORDERED: ACETAMINOPHEN 325 MG TABLET (FP) PO PRN (17:30)
[2019-07-23] MEDS ORDERED: P-EPHED 60MG/TRIPROLIDI 2.5MG TABLET PO PRN (17:30)
[2019-07-23] MEDS ORDERED: guaiFENesin 200 MG/10 ML 10 ML UNIT-DOSE CUPS PO PRN (17:30)
[2019-07-23] MEDS ORDERED: MAG HYDROX/AL HYDROX/SIMETH 30 ML UNIT-DOSE CUP PO PRN (17:30)
[2019-07-23] MEDS ORDERED: MENTHOL/PHENOL 1 EACH UD MM PRN (17:30)
--- NOTE | 2019-07-23 17:34 | HP ---
[facility] Rehab Assess/Revision - Admission History Admitted to Rehab from: [facility] Date of Admission to Rehab: 07/23/2019 - Findings Detox History & Physical reviewed: Yes Concur with findings: Yes Inpatient Rehab Admission - Rehab Decision to Admit Inpatient rehab admission?: Yes - Initial Determination Are CD services needed?: Yes Free of communicable disease: Yes Not in need of hospitalization: Yes - Rehab Admission Criteria Previous failed treatment: No Poor recovery environment: No Comorbidities: Yes Lacks judgement: Yes Patient is meeting Inpatient Rehab admission criteria:: Yes
[2019-07-23] MEDS: METOPROLOL TARTRATE 25 MG TABLET (FP) PO SCH (21:18)
[2019-07-23] MEDS: THIAMINE HCL 100 MG TABLET (FP) PO SCH (21:18)
[2019-07-23] MEDS: ATORVASTATIN CA 40 MG TABLET (FP) PO SCH (21:18)
[2019-07-24] MEDS: PRENATAL VITAMINS W/ FOLIC ACID TABLET (FP) PO SCH (10:07)
[2019-07-24] MEDS: ASPIRIN 81 MG CHEWABLE TABLETS PO SCH (10:07)
[2019-07-24] MEDS: METOPROLOL TARTRATE 25 MG TABLET (FP) PO SCH ×2 (10:07→21:59)
[2019-07-24] MEDS: ATORVASTATIN CA 40 MG TABLET (FP) PO SCH (21:41)
[2019-07-24] MEDS: THIAMINE HCL 100 MG TABLET (FP) PO SCH (21:41)
[2019-07-25] MEDS: PRENATAL VITAMINS W/ FOLIC ACID TABLET (FP) PO SCH (09:42)
[2019-07-25] MEDS: ASPIRIN 81 MG CHEWABLE TABLETS PO SCH (09:42)
[2019-07-25] MEDS: METOPROLOL TARTRATE 50 MG TABLET (FP) PO SCH ×2 (10:13→21:10)
[2019-07-25] MEDS: THIAMINE HCL 100 MG TABLET (FP) PO SCH (21:10)
[2019-07-25] MEDS: MELATONIN 5 MG TABLETS PO PRN (21:10)
[2019-07-25] MEDS: ATORVASTATIN CA 40 MG TABLET (FP) PO SCH (21:10)
[2019-07-26] MEDS: PRENATAL VITAMINS W/ FOLIC ACID TABLET (FP) PO SCH (10:28)
[2019-07-26] MEDS: METOPROLOL TARTRATE 50 MG TABLET (FP) PO SCH ×2 (10:28→21:23)
[2019-07-26] MEDS: ASPIRIN 81 MG CHEWABLE TABLETS PO SCH (10:28)
[2019-07-26] MEDS: THIAMINE HCL 100 MG TABLET (FP) PO SCH (21:23)
[2019-07-26] MEDS: MELATONIN 5 MG TABLETS PO PRN (21:23)
[2019-07-26] MEDS: ATORVASTATIN CA 40 MG TABLET (FP) PO SCH (21:23)
[2019-07-27] MEDS: METOPROLOL TARTRATE 50 MG TABLET (FP) PO SCH ×2 (10:05→21:16)
[2019-07-27] MEDS: ASPIRIN 81 MG CHEWABLE TABLETS PO SCH (10:05)
[2019-07-27] MEDS: PRENATAL VITAMINS W/ FOLIC ACID TABLET (FP) PO SCH (10:05)
[2019-07-27] MEDS: THIAMINE HCL 100 MG TABLET (FP) PO SCH (21:16)
[2019-07-27] MEDS: ATORVASTATIN CA 40 MG TABLET (FP) PO SCH (21:16)
[2019-07-27] MEDS: MELATONIN 5 MG TABLETS PO PRN (21:16)
[2019-07-28] MEDS: ASPIRIN 81 MG CHEWABLE TABLETS PO SCH (10:06)
[2019-07-28] MEDS: PRENATAL VITAMINS W/ FOLIC ACID TABLET (FP) PO SCH (10:06)
[2019-07-28] MEDS: METOPROLOL TARTRATE 50 MG TABLET (FP) PO SCH ×2 (10:06→21:23)
[2019-07-28] MEDS: ATORVASTATIN CA 40 MG TABLET (FP) PO SCH (21:23)
[2019-07-28] MEDS: THIAMINE HCL 100 MG TABLET (FP) PO SCH (21:24)
[2019-07-29] MEDS: ASPIRIN 81 MG CHEWABLE TABLETS PO SCH (10:31)
[2019-07-29] MEDS: METOPROLOL TARTRATE 50 MG TABLET (FP) PO SCH ×2 (10:32→21:30)
[2019-07-29] MEDS: PRENATAL VITAMINS W/ FOLIC ACID TABLET (FP) PO SCH (10:32)
[2019-07-29] MEDS: MELATONIN 5 MG TABLETS PO PRN (21:30)
[2019-07-29] MEDS: THIAMINE HCL 100 MG TABLET (FP) PO SCH (21:30)
[2019-07-29] MEDS: ATORVASTATIN CA 40 MG TABLET (FP) PO SCH (21:30)
[2019-07-30] MEDS: METOPROLOL TARTRATE 50 MG TABLET (FP) PO SCH ×2 (09:25→21:53)
[2019-07-30] MEDS: PRENATAL VITAMINS W/ FOLIC ACID TABLET (FP) PO SCH (09:25)
[2019-07-30] MEDS: ASPIRIN 81 MG CHEWABLE TABLETS PO SCH (09:25)
[2019-07-30] MEDS: THIAMINE HCL 100 MG TABLET (FP) PO SCH (21:53)
[2019-07-30] MEDS: ATORVASTATIN CA 40 MG TABLET (FP) PO SCH (21:53)
[2019-07-31 08:30] VITALS: TEMP 97.9
[2019-07-31] MEDS: ASPIRIN 81 MG CHEWABLE TABLETS PO SCH (09:32)
[2019-07-31] MEDS: METOPROLOL TARTRATE 50 MG TABLET (FP) PO SCH (09:32)
[2019-07-31] MEDS: PRENATAL VITAMINS W/ FOLIC ACID TABLET (FP) PO SCH (09:32)
[2019-07-31 10:55] VITALS: BP 123/84; PULSE 69
[2019-07-31] MEDS ORDERED: NICOTINE POLACRILEX 2 MG GUM BUC PRN (14:15)
--- NOTE | 2019-07-31 20:52 | DS ---
[facility] Rehab Discharge Summary - [facility] Rehab Discharge Summary Admission Date: 07/23/19 Discharge Date: 07/31/19 - History Present History: Alcohol dependence (Recent alcohol detox), Cocaine dependence Pertinent Past History: ETOH: since age 21. Cocaine: since age 25. Crystal Meth: began a few months ago. Nicotine: Smokes PMH: Afib, HTN, Psychiatric: Denies - Discharge Physical Exam Vital Signs: Vital Signs Temperature 97.9 F 07/31/19 06:09 Pulse Rate 69 07/31/19 08:29 Respiratory Rate 18 07/31/19 08:29 Blood Pressure 123/84 07/31/19 08:29 O2 Sat by Pulse Oximetry (%) Pertinent Admission Physical Exam Findings: Admitted in early alcohol remission w/ co-occurring hx cocaine, nicotine, and methamphetamine use disorder. - Treatment Discharge Condition: Discharge condition good (Alert and oriented.) Hospital Course: No acute issues during rehab. Reportedly had some personal issues that were addressed r/t sexual behavior. Stabilized. Vital Signs - 24 hr 07/31/19 07/31/19 07/31/19 00:30 03:30 06:09 Temperature 97.9 F Pulse Rate 61 Respiratory 18 18 18 Rate Blood Pressure 114/63 07/31/19 08:29 Temperature Pulse Rate 69 Respiratory 18 Rate Blood Pressure 123/84 Medical management of HTN, AFib, continued. States leaving a little earlier than planned because of marital problems. Refused discharge vital signs. - Medication Discharge Medications: Ambulatory Orders Aspirin [ASA -] 81 mg PO DAILY tab.chew 07/21/19 Atorvastatin Ca [Lipitor] 40 mg PO HS tablet 07/21/19 Carvedilol [Coreg -] 3.125 mg PO BID tablet 07/21/19 Folic Acid - 1 mg PO DAILY tablet 07/21/19 Metoprolol Tartrate 50 mg PO BID 07/21/19 Multivitamins [Multivit ([facility] Formulary)] 1 tab PO DAILY tab 07/21/19 Naph,Mb-Db/K pH,Mbdb [PHOS-NaK PACKET -] 1 packet PO BID 3 Days pow 07/21/19 Thiamine HCl [Vitamin B1 -] 100 mg PO DAILY tablet 07/21/19 - Medication-Assisted Treatment (MAT) Medication-Assisted Treatment (MAT): No - Discharge Instructions Diet, activity, other medical instructions: Diet: Diabetic/Low Na, Activity: ad josephine Other medical instructions: States has medications at home. Patient encouraged to f/u w/ PCP. Over sedation and overdose risks were reviewed. Declined nicotine patch/gum. Has own home medications. - Diagnosis (1) Alcohol use disorder, moderate, in early remission Current Visit: Yes Status: Acute (2) Cocaine dependence Current Visit: Yes Status: Chronic Qualifiers: Substance use status: uncomplicated Qualified Code(s): F14.20 - Cocaine dependence, uncomplicated (3) History of atrial fibrillation Current Visit: Yes Status: Chronic (4) Hyperlipidemia Current Visit: Yes Status: Chronic Qualifiers: Hyperlipidemia type: unspecified Qualified Code(s): E78.5 - Hyperlipidemia , unspecified (5) Hypertension Current Visit: Yes Status: Chronic Qualifiers: Hypertension type: essential hypertension Qualified Code(s): I10 - Essential (primary) hypertension (6) Nicotine dependence Current Visit: Yes Status: Chronic Qualifiers: Nicotine product type: cigarettes Substance use status: uncomplicated Qualified Code(s): F17.210 - Nicotine dependence, cigarettes, uncomplicated - Follow-up Referral Minutes to complete discharge: 15 - AMA Did Patient Leave Against Medical Advice: No
== END 2019-07-31 20:45 | disposition home or self-care (01) | DRG 772 ==
LOC: YASAS 16:23 → Y5N 16:24 → Y3W 18:23
PROVIDERS: ADMIT Allergy & Immunology; ATTEND Allergy & Immunology
PROC: HZ42ZZZ Group Counseling for Substance Abuse Treatment, Cognitive-Behavioral (ICD-10-PCS; principal; 2019-07-23)
DX: F10.20 Alcohol dependence, uncomplicated (principal); F14.20 Cocaine dependence, uncomplicated; F17.210 Nicotine dependence, cigarettes, uncomplicated; I10 Essential (primary) hypertension; I48.91 Unspecified atrial fibrillation; E78.5 Hyperlipidemia, unspecified